=== PATIENT | female | born 2000 | race Caucasian/White ===

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

== ENCOUNTER 2021-09-09 20:49 | Emergency (ER) | payer OTHER ==
--- OUTSIDE RECORDS SUMMARY | 2021-09-09 20:53 | XMS REPORT | Continuity of Care Document ---
:2000 Author Organization [facility] t Address [address] [place] [address] [address]. [address] [place] [address] Care Team Providers Name Role Phone Jesus Peralta DO Attending Clinician Lab, Fam Pob I Attending Clinician Unavailable Daily HOUSEKEEPING ATTENDANT Attending Clinician NARA Attending Clinician Unavailable Alex RODRIGUEZ Attending Clinician Unavailable Douglas HOUSEKEEPING ATTENDANT Attending Clinician Doctor Unassigned, Name Attending Clinician Unavailable Nara REYNOSO Attending Clinician Saloni Bernard MD Attending Clinician SALONI BERNARD Attending Clinician Unavailable Filemon Shea MD Attending Clinician 2, Lab Attending Clinician Unavailable SOLA Attending Clinician Unavailable SOLA Attending Clinician Unavailable Ultrasound Attending Clinician Unavailable Sola MCCLOUD Attending Clinician Payers Payer Name Policy Type Policy Number Effective Date Expiration Date Gage MORALES [id number] 2018 00:00:00 [place] [facility] [id number] 2018 HEALTH 00:00:00 Problems Condition Condition Condition Status Onset Resolution Last Treating Co mments Source Name Details Category Date Date Treatment Clinician Date Pre-eclamp Pre-eclamp Disease Active 2018-07 U nivers irene, mild, irene, mild, 2-19 it y of delivered delivered 00:00: Tonie coates [address] [place] [address] Liveborn Liveborn Disease Active 2018-07 Unive rs , of , of 2-18 it y of burr burr 00:00: Tonie coates , , 00 Me dical born in born in [facility] by vaginal by vaginal delivery delivery Encounter Encounter Disease Active 2018-07 Uni vers for for 2-17 ity of elective elective 00:00: [place] induction induction 00 [facility] labor of labor Branch High-risk High-risk Disease Active 2018-07 Uni vers 2-09 ity of in third in third 00:00: [place] trimester trimester 00 [facility] 39 weeks 39 weeks Disease Active 2018-07 Unive rs gestation gestation 2-09 ity of of of 00:00: [place] 00 [facility] Depression Depression Disease Active 2018-07 U nivers , , 2- ity of unspecifie unspecifie 00:00: Te richies d d 00 Medical depression depression Br anch type type Generalize Generalize Disease Active 2018-07 U nivers d anxiety d anxiety 2- ity of disorder disorder 00:00: [address] Branch Obesity Obesity Disease Active Univers (BMI (BMI 9-18 ity of 30-39.9) 30-39.9) 00:00: [address] Branch No known No known Disease Unive rs active active ity of problems problems [facility] Allergies, Adverse Reactions, Alerts Allergy Allergy Status Severity Reaction(s) Onset Inactive Treating Comm ents Source Name Type Date Date Clinician NO KNOWN Drug Active Univers ALLERGIE Class ity of S [facility] Social History Social Habit Start Date Stop Date Quantity Comments Source ASSERTION 2018-10-09 University of 00:00:00 [facility] Exposure to Yes University of SARS-CoV-2 [place] [facility] (event) Branch History SDFL University o f Alcohol Std [place] [facility] Drinks Branch History [facility] University o f Alcohol Binge [place] [facility] Tobacco use and 2019-07-24 2019-07-24 Never used Universit y of exposure 00:00:00 00:00:00 [facility] Alcohol intake 2019-07-24 2019-07-24 Lifetime University of 00:00:00 00:00:00 non-drinker [facility] (finding) Branch History SDOH 2019-01-02 2019-01-02 1 University o f Alcohol Frequency 00:00:00 00:00:00 [facility] edical [place] Sex Assigned At [birth year] Universit y of 00:00:00 00:00:00 [facility] Smoking Status Start Date Stop Date Source Never smoker University [facility] Medications Ordered Filled Start Stop Current Ordering Indication Dosage Frequency Signature Comments Components Source Medication Medication Date Date Medication? Clinician (SIG) Name Name norethindro 2020-0 Yes [id number] 1{tbl} Take 1 Univers ne 0.35 mg 1-15 tablet by ity of tablet 00:00: mouth [place] 00 daily. Medical Branch norethindro 2020-0 Yes [id number] 1{tbl} Take 1 Univers ne 0.35 mg 1-15 tablet by ity of tablet 00:00: mouth [place] 00 daily. Medical Branch norethindro 2020-0 Yes [id number] 1{tbl} Take 1 Univers ne 0.35 mg 1-15 tablet by ity of tablet 00:00: mouth [place] 00 daily. Medical Branch norethindro 2020-0 Yes [id number] 1{tbl} Take 1 Univers ne 0.35 mg 1-15 tablet by ity of tablet 00:00: mouth [place] 00 daily. [facility] Branch norethindro 2019-0 Yes [id number] 1{tbl} Take 1 Univers ne 0.35 mg 1-15 tablet by ity of tablet 00:00: mouth [place] 00 daily. Medical Branch norethindro 2020-0 Yes [id number] 1{tbl} Take 1 Univers ne 0.35 mg 1-15 tablet by ity of tablet 00:00: mouth [place] 00 daily. Medical Branch norethindro 2020-0 Yes [id number] 1{tbl} Take 1 Univers ne 0.35 mg 1-15 tablet by ity of tablet 00:00: mouth [place] 00 daily. [facility] Branch norethindro 2019-0 Yes [id number] 1{tbl} Take 1 Univers ne 0.35 mg 1-15 tablet by ity of tablet 00:00: mouth [place] 00 daily. Medical Branch norethindro 2020-0 Yes [id number] 1{tbl} Take 1 Univers ne 0.35 mg 1-15 tablet by ity of tablet 00:00: mouth [place] 00 daily. Medical Branch norethindro 2020-0 Yes [id number] 1{tbl} Take 1 Univers ne 0.35 mg 1-15 tablet by ity of tablet 00:00: mouth [place] 00 daily. [facility] Branch norethindro 2020-0 Yes [id number] 1{tbl} Take 1 Univers ne 0.35 mg 1-15 tablet by ity of tablet 00:00: mouth [place] 00 daily. Medical Branch ibuprofen 2019- Yes [id number] 600mg Take 1 U nivers 600 mg 2-19 tablet by ity of tablet 00:00: mouth [place] 00 every 6 Medical (six) Branch hours as needed (Pain). Take with food or milk. 2018-07 Yes [id number] 1{tbl} Take 1 U nivers vitamin 2-19 tablet by ity of w/FA tablet 00:00: mouth [place] 00 daily. Medical Branch docusate 2018-07 Yes [id number] 240mg Take 1 Un chetna calcium 240 2-19 capsule by it y of mg capsule 00:00: mouth [place] 00 daily as Medical needed for Branch Constipati on. ferrous 2018-07 Yes [id number] 325mg Take 1 Uni vers sulfate 325 2-19 tablet by ity of mg (65 mg 00:00: mouth 2 [place] iron) 00 (two) Medical tablet times Branch daily. ibuprofen 2018-07 Yes [id number] 600mg Take 1 U nivers 600 mg 2-19 tablet by ity of tablet 00:00: mouth [place] 00 every 6 Medical (six) Branch hours as needed (Pain). Take with food or milk. 2018-07 Yes [id number] 1{tbl} Take 1 U nivers vitamin 2-19 tablet by ity of w/FA tablet 00:00: mouth [place] 00 daily. Medical Branch docusate 2018-07 Yes [id number] 240mg Take 1 Un chetna calcium 240 2-19 capsule by it y of mg capsule 00:00: mouth once [place] 00 daily as Medical needed for Branch Constipati on. ferrous 2018-07 Yes [id number] 325mg Take 1 Uni vers sulfate 325 2-19 tablet by ity of mg (65 mg 00:00: mouth 2 [place] iron) 00 (two) Medical tablet times Branch daily. ibuprofen 2018-07 Yes [id number] 600mg Take 1 U nivers 600 mg 2-19 tablet by ity of tablet 00:00: mouth [place] 00 every 6 Medical (six) Branch hours as needed (Pain). Take with food or milk. 2018-07 Yes [id number] 1{tbl} Take 1 U nivers vitamin 2-19 tablet by ity of w/FA tablet 00:00: mouth [place] 00 daily. Medical Branch docusate 2018-07 Yes [id number] 240mg Take 1 Un chetna calcium 240 2-19 capsule by it y of mg capsule 00:00: mouth once [place] 00 daily as Medical needed for Branch Constipati on. ferrous 2018-07 Yes [id number] 325mg Take 1 Uni vers sulfate 325 2-19 tablet by ity of mg (65 mg 00:00: mouth 2 [place] iron) 00 (two) Medical tablet times Branch daily. ibuprofen 2018-07 Yes [id number] 600mg Take 1 U nivers 600 mg 2-19 tablet by ity of tablet 00:00: mouth [place] 00 every 6 Medical (six) Branch hours as needed (Pain). Take with food or milk. 2018-07 Yes [id number] 1{tbl} Take 1 U nivers vitamin 2-19 tablet by ity of w/FA tablet 00:00: mouth [place] 00 daily. Medical Branch docusate 2018-07 Yes [id number] 240mg Take 1 Un chetna calcium 240 2-19 capsule by it y of mg capsule 00:00: mouth once [place] 00 daily as Medical needed for Branch Constipati on. ferrous 2018-07 Yes [id number] 325mg Take 1 Uni vers sulfate 325 2-19 tablet by ity of mg (65 mg 00:00: mouth 2 [place] iron) 00 (two) Medical tablet times Branch daily. ibuprofen 2018-07 Yes [id number] 600mg Take 1 U nivers 600 mg 2-19 tablet by ity of tablet 00:00: mouth [place] 00 every 6 Medical (six) Branch hours as needed (Pain). Take with food or milk. 2018-07 Yes [id number] 1{tbl} Take 1 U nivers vitamin 2-19 tablet by ity of w/FA tablet 00:00: mouth [place] 00 daily. Medical Branch docusate 2018-07 Yes [id number] 240mg Take 1 Un chetna calcium 240 2-19 capsule by it y of mg capsule 00:00: mouth once [place] 00 daily as Medical needed for Branch Constipati on. ferrous 2018-07 Yes [id number] 325mg Take 1 Uni vers sulfate 325 2-19 tablet by ity of mg (65 mg 00:00: mouth 2 [place] iron) 00 (two) Medical tablet times Branch daily. ibuprofen 2018-07 Yes [id number] 600mg Take 1 U nivers 600 mg 2-19 tablet by ity of tablet 00:00: mouth [place] 00 every 6 Medical (six) Branch hours as needed (Pain). Take with food or milk. 2018-07 Yes [id number] 1{tbl} Take 1 U nivers vitamin 2-19 tablet by ity of w/FA tablet 00:00: mouth [place] 00 daily. Medical Branch docusate 2018-07 Yes [id number] 240mg Take 1 Un chetna calcium 240 2-19 capsule by it y of mg capsule 00:00: mouth once [place] 00 daily as Medical needed for Branch Constipati on. ferrous 2018-07 Yes [id number] 325mg Take 1 Uni vers sulfate 325 2-19 tablet by ity of mg (65 mg 00:00: mouth 2 [place] iron) 00 (two) Medical tablet times Branch daily. ibuprofen 2018-07 Yes [id number] 600mg Take 1 U nivers 600 mg 2-19 tablet by ity of tablet 00:00: mouth [place] 00 every 6 Medical (six) Branch hours as needed (Pain). Take with food or milk. 2018-07 Yes [id number] 1{tbl} Take 1 U nivers vitamin 2-19 tablet by ity of w/FA tablet 00:00: mouth [place] 00 [facility]. [facility] Yes [id number] 240mg Take 1 Un chetna calcium 240 2-19 capsule by it y of mg capsule 00:00: mouth once [place] 00 daily as Medical needed for Branch Constipati on. ferrous 2018-07 Yes [id number] 325mg Take 1 Uni vers sulfate 325 2-19 tablet by ity of mg (65 mg 00:00: mouth 2 [place] iron) 00 (two) Medical tablet times Branch daily. ibuprofen 2018-07 Yes [id number] 600mg Take 1 U nivers 600 mg 2-19 tablet by ity of tablet 00:00: mouth [place] 00 every 6 Medical (six) Branch hours as needed (Pain). Take with food or milk. 2018-07 Yes [id number] 1{tbl} Take 1 U nivers vitamin 2-19 tablet by ity of w/FA tablet 00:00: mouth [place] 00 daily. [facility] Yes [id number] 240mg Take 1 Un chetna calcium 240 2-19 capsule by it y of mg capsule 00:00: mouth once [place] 00 daily as Medical needed for Branch Constipati on. ferrous 2018-07 Yes [id number] 325mg Take 1 Uni vers sulfate 325 2-19 tablet by ity of mg (65 mg 00:00: mouth 2 [place] iron) 00 (two) Medical tablet times Branch daily. ibuprofen 2018-07 Yes [id number] 600mg Take 1 U nivers 600 mg 2-19 tablet by ity of tablet 00:00: mouth [place] 00 every 6 Medical (six) Branch hours as needed (Pain). Take with food or milk. 2018-07 Yes [id number] 1{tbl} Take 1 U nivers vitamin 2-19 tablet by ity of w/FA tablet 00:00: mouth [place] 00 daily. Medical Branch docusate 2018-07 Yes [id number] 240mg Take 1 Un chetna calcium 240 2-19 capsule by it y of mg capsule 00:00: mouth once [place] 00 daily as Medical needed for Branch Constipati on. ferrous 2018-07 Yes [id number] 325mg Take 1 Uni vers sulfate 325 2-19 tablet by ity of mg (65 mg 00:00: mouth 2 [place] iron) 00 (two) Medical tablet times Branch daily. ibuprofen 2018-07 Yes [id number] 600mg Take 1 U nivers 600 mg 2-19 tablet by ity of tablet 00:00: mouth [place] 00 every 6 Medical (six) Branch hours as needed (Pain). Take with food or milk. 2018-07 Yes [id number] 1{tbl} Take 1 U nivers vitamin 2-19 tablet by ity of w/FA tablet 00:00: mouth [place] 00 daily. Medical Branch docusate 2018-07 Yes [id number] 240mg Take 1 Un chetna calcium 240 2-19 capsule by it y of mg capsule 00:00: mouth once [place] 00 daily as Medical needed for Branch Constipati on. ferrous 2018-07 Yes [id number] 325mg Take 1 Uni vers sulfate 325 2-19 tablet by ity of mg (65 mg 00:00: mouth 2 [place] iron) 00 (two) Medical tablet times Branch daily. ibuprofen 2018-07 Yes [id number] 600mg Take 1 U nivers 600 mg 2-19 tablet by ity of tablet 00:00: mouth [place] 00 every 6 Medical (six) Branch hours as needed (Pain). Take with food or milk. 2018-07 Yes [id number] 1{tbl} Take 1 U nivers vitamin 2-19 tablet by ity of w/FA tablet 00:00: mouth [place] 00 daily. Medical Branch docusate 2018-07 Yes [id number] 240mg Take 1 Un chetna calcium 240 2-19 capsule by it y of mg capsule 00:00: mouth once [place] 00 daily as Medical needed for Branch Constipati on. ferrous 2018-07 Yes [id number] 325mg Take 1 Uni vers sulfate 325 2-19 tablet by ity of mg (65 mg 00:00: mouth 2 [place] iron) 00 (two) Medical tablet times Branch daily. SERTraline 2018-07 Yes [id number] 50mg Take 1 U nivers (ZOLOFT) 50 0-17 tablet by ity of mg tablet 00:00: mouth [place] 00 daily. Medical Branch SERTraline 2018-07 Yes [id number] 50mg Take 1 U nivers (ZOLOFT) 50 0-17 tablet by ity of mg tablet 00:00: mouth [place] 00 daily. Medical Branch SERTraline 2018-07 Yes [id number] 50mg Take 1 U nivers (ZOLOFT) 50 0-17 tablet by ity of mg tablet 00:00: mouth [place] 00 daily. Medical Branch SERTraline 2018-07 Yes [id number] 50mg Take 1 U nivers (ZOLOFT) 50 0-17 tablet by ity of mg tablet 00:00: mouth [place] 00 daily. Medical Branch SERTraline 2018-07 Yes [id number] 50mg Take 1 U nivers (ZOLOFT) 50 0-17 tablet by ity of mg tablet 00:00: mouth [place] 00 daily. Medical Branch SERTraline 2018-07 Yes [id number] 50mg Take 1 U nivers (ZOLOFT) 50 0-17 tablet by ity of mg tablet 00:00: mouth [place] 00 daily. Medical Branch SERTraline 2018-07 Yes [id number] 50mg Take 1 U nivers (ZOLOFT) 50 0-17 tablet by ity of mg tablet 00:00: mouth [place] 00 daily. Medical Branch SERTraline 2018-07 Yes [id number] 50mg Take 1 U nivers (ZOLOFT) 50 0-17 tablet by ity of mg tablet 00:00: mouth [place] 00 daily. Medical Branch SERTraline 2018-07 Yes [id number] 50mg Take 1 U nivers (ZOLOFT) 50 0-17 tablet by ity of mg tablet 00:00: mouth [place] 00 daily. Medical Branch SERTraline 2018-07 Yes [id number] 50mg Take 1 U nivers (ZOLOFT) 50 0-17 tablet by ity of mg tablet 00:00: mouth [place] 00 daily. Medical Branch SERTraline 2019- Yes [id number] 50mg Take 1 U nivers (ZOLOFT) 50 0-17 tablet by ity of mg tablet 00:00: mouth [place] 00 daily. Medical Branch metroNIDAZO 2019-0 Yes [id number] 500mg Take 1 Univers LE 500 mg 9-19 tablet by ity o f tablet 00:00: mouth [place] 00 every 12 Medical (twelve) Branch hours. 2019-0 Yes Take by Unive rs vit 6-26 mouth. ity of calc,iron,f 14:45: [address] ( Branch VITAMIN ORAL) 2019-0 Yes Take by Unive rs vit 6-26 mouth. ity of calc,iron,f 14:45: [address] ([facility] Branch VITAMIN ORAL) 2019-0 Yes Take by Unive rs vit 6-26 mouth. ity of calc,iron,f 14:45: [address] ( Branch VITAMIN ORAL) 2019-0 Yes Take by Unive rs vit 6-26 mouth. ity of calc,iron,f 14:45: [address] ([facility] Branch VITAMIN ORAL) 2019-0 Yes Take by Unive rs vit 6-26 mouth. ity of calc,iron,f 14:45: [address] ( Branch VITAMIN ORAL) 2019-0 Yes Take by Unive rs vit 6-26 mouth. ity of calc,iron,f 14:45: [address] ( Branch VITAMIN ORAL) 2019-0 Yes Take by Unive rs vit 6-26 mouth. ity of calc,iron,f 14:45: [address] ( Branch VITAMIN ORAL) 2019-0 Yes Take by Unive rs vit 6-26 mouth. ity of calc,iron,f 14:45: [address] ( Branch VITAMIN ORAL) 2019-0 Yes Take by Unive rs vit 6-26 mouth. ity of calc,iron,f 14:45: [address] ([facility] Branch VITAMIN ORAL) 2019-0 Yes Take by Unive rs vit 6-26 mouth. ity of calc,iron,f 14:45: [place] olic 06 Medical ( Branch VITAMIN ORAL) Immunizations Ordered Filled Immunization Date Status Comments [facility] e Immunization Name Name TDAP (ADACEL) 2019-04-25 Completed University of VACCINE 00:00:00 [facility] Influenza Virus 2019-04-25 Completed Universit y of Vaccine Quad .5 mL 00:00:[address] [facility] IM 6+ MO Branch TDAP (ADACEL) 2019-04-25 Completed University of VACCINE 00:00:00 [facility] Influenza Virus 2019-04-25 Completed Universit y of Vaccine Quad .5 mL 00:00:[address] [facility] IM 6+ MO Branch TDAP (ADACEL) 2019-04-25 Completed University of VACCINE 00:00:00 [facility] Influenza Virus 2019-04-25 Completed Universit y of Vaccine Quad .5 mL 00:00:[address] [facility] IM 6+ MO Branch TDAP (ADACEL) 2019-04-25 Completed University of VACCINE 00:00:00 [facility] Influenza Virus 2019-04-25 Completed Universit y of Vaccine Quad .5 mL 00:00:[address] [facility] IM 6+ MO Branch TDAP (ADACEL) 2019-04-25 Completed University of VACCINE 00:00:00 [facility] Influenza Virus 2019-04-25 Completed Universit y of Vaccine Quad .5 mL 00:00:[address] [facility] IM 6+ MO Branch TDAP (ADACEL) 2019-04-25 Completed University of VACCINE 00:00:00 [facility] Influenza Virus 2019-04-25 Completed Universit y of Vaccine Quad .5 mL 00:00:[address] [facility] IM 6+ MO Branch TDAP (ADACEL) 2019-04-25 Completed University of VACCINE 00:00:00 [facility] Influenza Virus 2019-04-25 Completed Universit y of Vaccine Quad .5 mL 00:00:[address] [facility] IM 6+ MO Branch TDAP (ADACEL) 2019-04-25 Completed University of VACCINE 00:00:00 [facility] Influenza Virus 2019-04-25 Completed Universit y of Vaccine Quad .5 mL 00:00:00 [place] [facility] IM 6+ MO Branch TDAP (ADACEL) 2019-04-25 Completed University of VACCINE 00:00:00 [facility] Influenza Virus 2019-04-25 Completed Universit y of Vaccine Quad .5 mL 00:00:[address] [facility] IM 6+ MO Branch TDAP (ADACEL) 2019-04-25 Completed University of VACCINE 00:00:00 [facility] Influenza Virus 2019-04-25 Completed Universit y of Vaccine Quad .5 mL 00:00:[address] [facility] IM 6+ MO Branch TDAP (ADACEL) 2019-04-25 Completed University of VACCINE 00:00:00 [facility] Influenza Virus 2019-04-25 Completed Universit y of Vaccine Quad .5 mL 00:00:[address] [facility] IM 6+ MO Branch Vital Signs Vital Name Observation Time Observation Value Comments Source Systolic blood 2019-07-24 17:10:00 126 mm[Hg] Univer sity of pressure [place] [facility] Diastolic blood 2019-07-24 17:10:00 79 mm[Hg] Unive rsity of pressure [facility] Branch Heart rate 2019-07-24 17:10:00 64 /min Universi ty of [place] [facility] [place] Body temperature 2019-07-24 17:10:00 36.61 Anisha Univ ersity of [place] [facility] Respiratory rate 2019-07-24 17:10:00 18 /min Univ ersity of [place] [facility] Body height 2019-07-24 17:10:00 172.7 cm Universi ty of [place] [facility] Body weight 2019-07-24 17:10:00 90.719 kg Universi ty of [place] [facility] BMI 2019-07-24 17:10:00 30.41 kg/m2 Universi ty of [place] [facility] Systolic blood 2019-03-27 15:06:00 114 mm[Hg] Univer sity of pressure [place] [facility] Diastolic blood 2019-03-27 15:06:00 77 mm[Hg] Unive rsity of pressure [place] [facility] Heart rate 2019-03-27 15:06:00 78 /min Universi ty of [place] [facility] Body temperature 2019-03-27 15:06:00 36.67 Anisha Univ ersity of [place] [facility] Respiratory rate 2019-03-27 15:06:00 20 /min Univ ersity of [place] [facility] Body height 2019-03-27 15:06:00 170.2 cm Universi ty of [place] [facility] Body weight 2019-03-27 15:06:00 94.348 kg Universi ty of [place] [facility] BMI 2019-03-27 15:06:00 32.58 kg/m2 Universi ty of [place] [facility] Systolic blood 2019-02-27 14:04:00 118 mm[Hg] Univer sity of pressure [facility] Diastolic blood 2019-02-27 14:04:00 78 mm[Hg] Unive rsity of pressure [facility] Heart rate 2019-02-27 14:04:00 67 /min [facility] Body temperature 2019-02-27 14:04:00 36.5 Anisha [facility] 2019-02-27 14:04:00 18 /min [facility] Body height 2019-02-27 14:04:00 170.2 cm [facility] Body weight 2019-02-27 14:04:00 89.812 kg [facility] BMI 2019-02-27 14:04:00 31.01 kg/m2 [facility] Procedures Procedure Date / Time Performing Clinician Source Performed CONSENT FOR ORAL 2019-07-24 06:01:00 Doctor Alvarado, [facility] CONTRACEPTIVES [place] [facility] POCT TEST 2019-07-24 00:00:00 Justyna Haley [facility] POCT URINALYSIS W/O 2019-02-27 00:00:00 Justyna Haley [facility] SPECIFIC GRAVITY [facility] EXTERNAL PROVIDER RECORDS 2019-02-01 05:01:00 Doctor Alvarado, [facility] [place] [facility] Encounters Start End Encounter Admission Attending Care Care Encounter Source Date/Time Date/Time Type Type Clinicians Facility Department ID 2020-09-29 2020-09-29 Patient Fabian, [facility] [id number] Univers 00:00:00 00:00:00 Outreach [place] PRIMARY [id number] i ty of [facility] [id number] [place] [id number] De dical [address] Branch 2020-02-04 2020-02-04 Laboratory Lab, Adc Fam Pob [place] 1.2. [id number] Univers 08:57:30 09:17:30 Only Daily Annita [employer] [id number] ity of [place] [id number] [place] as Milena [phone] De dical [facility] [address] Branch [address] 2020-02-04 2020-02-04 Outpatient R [facility] [id number] Univers 09:00:00 09:00:00 [id number] ity of [facility] 2020-02-04 2020-02-04 Outpatient R [facility] [id number] Univers 09:00:00 09:00:00 ity of [facility] 2020-01-22 2020-01-22 [facility] [id number] Univers 13:30:00 13:30:00 JUSTYNA ity [facility] 2020-01-22 2020-01-22 Telephone MASON Johnson [id number] Univers 00:00:00 00:00:00 Matthew HARIS [id number] it y of [facility] [id number] Liborio as [phone] [address] 2020-01-20 2020-01-20 Laboratory Lab, Adc Fam Pob I [facility] 1.2. [id number] Univers 09:58:50 10:18:50 Only [place], [facility] [id number] ity of [place] [id number] Liborio as Professio [id number] De dical [address] Office [address] 2020-01-20 2020-01-20 Outpatient R [facility] [id number] Univers 09:40:00 09:40:00 [id number] ity [facility] 2020-01-20 2020-01-20 Outpatient R [facility] [id number] Univers 09:40:00 09:40:00 ity [facility] 2019-10-15 2019-10-15 Patient Doctor MASON [id number] Univers 00:00:00 00:00:00 Secure Msg Unassigned, HARIS [id number] ity of [facility][1] [id number] [place] as [id number] [address] 2019-10-10 2019-10-10 [facility] [id number] Univers 10:30:00 10:30:00 JUSTYNA [id number] ity [facility] 2019-10-10 2019-10-10 [facility] [id number] Univers 10:30:00 10:30:00 JUSTYNA itadina [facility] 2019-09-30 2019-09-30 Telephone Nara [facility] [id number] Univers 00:00:00 00:00:00 Justyna Richardson [id number] i ty of [place] [id number] [place] Professio [phone] [address] 2019-08-02 2019-08-02 Telephone Madhavi Bernard [facility] [facility] [id number] Univers 00:00:00 00:00:00 Saloni Richardson [id number] [id number] [phone] [address] 2019-07-24 2019-07-24 Routine Nara [facility] [id number] Univers 10:48:57 12:23:03 Justyna Richardson [id number] ity [id number] [phone] [address] 2019-07-24 2019-07-24 Orders Doctor MASON [id number] Univers 00:00:00 00:00:00 Only Unassigned, HARIS [id number] ity of [place] [facility] [id number] [place] as [phone] [address] 2019-03-28 2019-03-28 Case Nara [facility] [id number] Univers 00:00:00 00:00:00 Management Justyna Richardson [id number] [id number] [phone] [address] 2019-03-27 2019-03-27 Outpatient R MADHAVI BERNARD [facility] [id number] Univers 09:45:00 10:30:06 ity of [facility] 2019-03-27 2019-03-27 Routine Madhavi Bernard [facility] [id number] Univers 09:42:25 10:30:06 Saloni Richardson [id number] it[id number] [phone] [facility] [address] [facility] 2019-02-27 2019-02-27 Outpatient R NARA [facility] [id number] Univers 09:00:00 09:17:15 JUSTYNA ity [facility] 2019-02-27 2019-02-27 [facility] [id number] Univers 08:57:20 09:17:15 Justyna Debra [id number] it[id number] [phone] [facility] [address] [facility] 2019-02-12 2019-02-12 [facility] ShabbirMILI 1.2.840.114 [id number] [facility] 15:41:53 23:59:00 Encounter Adelia Cunningham [id number] ity of [facility] [id number] [place] [phone] [address] 2019-02-07 2019-02-12 Transistor Tester 2, Adc Lab [facility] [id number] Univers 10:40:29 13:24:31 Visit Madhavi Bernard Debra [id number] it[place] of [id number] [phone] [facility] [address] [facility] 2019-02-12 2019-02-12 Case Madhavi Bernard [facility] [id number] Univers 00:00:00 00:00:00 Management Saloni Richardson [id number] it[id number] [phone] [facility] [address] [facility] 2019-02-07 2019-02-07 Outpatient P INOCENCIA SELBY [facility] [id number] Univers 09:00:00 10:23:36 [facility] 2019-02-07 2019-02-07 Transistor Tester Ultrasound, JoniMfshannan [facility] 1.2 .840.114 [id number] Univers 08:56:22 10:23:36 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 [id number] ity of [facility] [id number] [place] as MATERNAL [phone] Med ical & CHILD [address] [place] [address] 2019-02-01 2019-02-01 Orders Doctor MASON [id number] Univers 00:00:00 00:00:00 Only Unassigned, HARIS [id number] ity of [place] [facility] [id number] [place] [phone] [address] Results Test Description Test Time Test Comments Results Result Comments Source POCT TEST 2019-07-24 18:22:00 Test Item Value Reference Range Interpretation Comme nts POCT PREG (test code = 1605) Negative On board controls acceptable with C Line (test code = 3574) Yes POCT PREG LOT # (test code = 3575) [id number] POCT PREG TEST DATE (test code = 3576) [facility] [id number] 14:14:00 Test Item Value Reference Range Interpretation Comments POCT PH U (test code = 3254) N/A 5-8 POCT U LEUK EST (test code = N/A Negative - Negative 3263) POCT U NIT (test code = 3262) N/A Negative - Negative POCT U PROT (test code = 3259) Negative Negative - Negative POCT U GLU (test code = 3256) Negative Negative - Negative POCT U KETONE (test code = 3258) N/A Negative - Negative POCT U BLD (test code = 3257) N/A Negative - Negative [facility]
[2021-09-09 22:45] LABS: Absolute Lymphocytes (CBC) 1.5 K/uL (0.7-4.9); Hematocrit 40.8 % (36.0-45.0); Lymphocytes % 28.3 % (15.3-44.8); MPV 7.7 fL (7.6-11.3); RBC Red Blood Cell Count 4.34 M/uL (3.86-4.86)
[2021-09-09 23:04] LABS: ALT/SGPT 37 U/L (12-78); AST/SGOT 27 U/L (15-37); Albumin 3.3 g/dL (3.4-5.0); Alkaline Phosphatase 66 U/L (45-117); BUN Blood Urea Nitrogen 12 mg/dL (7-18); Bicarbonate 23 mmol/L (21-32); Bilirubin Total 0.3 mg/dL (0.2-1.0); Glucose Level 90 mg/dL (74-106); Lipase 90 U/L (73-393); Potassium 3.9 mmol/L (3.5-5.1); Protein, Total 7.3 g/dL (6.4-8.2); Sodium Level 140 mmol/L (136-145)
[2021-09-09 23:08] LABS: Bilirubin Direct < 0.1 mg/dL (0-0.2)
[2021-09-09] MEDS ORDERED: NA CHLORIDE 0.9% 1,000 ML ONE (23:12)
--- NOTE | 2021-09-09 23:33 | EDPHYS ---
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 22:20 The patient presents to the emergency department with diarrhea, that is continuous. cp Onset: The symptoms/episode began/occurred 2 day(s) ago. 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 Associated signs and symptoms: Pertinent negatives: abdominal pain, constipation, fever, GI bleeding. Severity of symptoms: in the emergency department the symptoms are unchanged despite home interventions. 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 - Social history:: Smoking status: Reported history of juuling and/or vaping. Patient uses alcohol, only on a social basis. Patient/guardian denies using street drugs. ROS: 22:25 Constitutional: Negative for fever, poor PO intake. cp 22:25 Eyes: Negative for injury, pain, redness, and discharge. cp 22:25 Cardiovascular: Negative for chest pain. 22:25 Respiratory: Negative for cough, shortness of breath, wheezing. 22:25 Abdomen/GI: Positive for diarrhea, Negative for abdominal pain, vomiting, constipation, anorexia, black/tarry stool, rectal bleeding. 22:25 Neuro: Negative for altered mental status, headache, syncope, weakness. 22:25 All other systems are negative. Exam: 22:30 Constitutional: The patient appears in no acute distress, alert, awake, comfortable, cp non-toxic, well developed, well nourished. 22:30 Head/Face: Normocephalic, atraumatic. cp 22:30 Eyes: Periorbital structures: appear normal, Conjunctiva: normal, no exudate, no injection, Sclera: no appreciated abnormality, Lids and lashes: appear normal, bilaterally. 22:30 ENT: External ear(s): are unremarkable, Nose: is normal, Mouth: Lips: moist, Oral mucosa: moist, Posterior pharynx: Airway: no evidence of obstruction, patent. 22:30 Chest/axilla: Inspection: normal. 22:30 Cardiovascular: Rate: normal, Rhythm: regular. 22:30 Respiratory: the patient does not display signs of respiratory distress, Respirations: normal, no use of accessory muscles, no retractions, labored breathing, is not present, Breath sounds: are clear throughout, no decreased breath sounds, no stridor, no wheezing. 22:30 Abdomen/GI: Inspection: abdomen appears normal, Bowel sounds: active, all quadrants, Palpation: abdomen is soft and non-tender, in all quadrants, rebound tenderness, is not appreciated, involuntary guarding, is not appreciated. 22:30 Back: pain, is absent, ROM is normal. 22:30 Neuro: Orientation: to person, place \T\ time. Mentation: is normal. Vital Signs: 20:59 BP 131 / 92; Pulse 86; Resp 18; Temp 97.4; Pulse Ox 100% on R/A; Weight 79.38 kg (R); lg3 Height 5 ft. 8 in. (172.72 cm) (R); Pain 0/10; 23:42 BP 129 / 87; Pulse 82; Resp 17; Pulse Ox 100% on R/A; sm5 20:59 Body Mass Index 26.61 (79.38 kg, 172.72 cm) lg3 MDM: 22:11 Patient medically screened. cp 23:30 Data reviewed: vital signs, nurses notes, lab test result(s), and as a result, I will cp discharge patient. 23:30 Counseling: I had a detailed discussion with the patient and/or guardian regarding: the cp historical points, exam findings, and any diagnostic results supporting the discharge/admit diagnosis, lab results, to return to the emergency department if symptoms worsen or persist or if there are any questions or concerns that arise at home. ED course: VSS. Patient appears non-toxic. Will discharge to home for continued monitoring. Recommend hydration, antidiarrheal meds. 09/09 22:11 Order name: Basic Metabolic Panel; Complete Time: 23:09 cp 09/09 23:26 Interpretation: Normal except: CL 111. cp 09/09 22:11 Order name: CBC with Diff; Complete Time: 23:07 cp 09/09 23:27 Interpretation: Normal except: MN% 14.1. cp 09/09 22:11 Order name: Hepatic Function; Complete Time: 23:09 cp 09/09 23:27 Interpretation: Normal except: ALB 3.3; GLOB 4.0; A/G 0.8. cp 09/09 22:11 Order name: Lipase; Complete Time: 23:09 cp 09/09 22:28 Order name: Occult Blood cp 09/09 22:28 Order name: Ova And Parasites cp 09/09 22:28 Order name: Rotavirus Antigen cp 09/09 22:28 Order name: Stool Culture cp 09/09 22:28 Order name: CDIFF cp 09/09 22:29 Order name: Occult Blood; Complete Time: 23:07 EDMS 09/09 22:29 Order name: Ova and Parasites EDMS 09/09 22:29 Order name: Rotavirus Antigen; Complete Time: 23:07 EDMS 09/09 23:07 Interpretation: Reviewed. cp 09/09 22:11 Order name: IV Saline Lock; Complete Time: 22:28 cp 09/09 22:11 Order name: Labs collected and sent; Complete Time: 23:04 cp 09/09 22:28 Order name: Urine Dipstick-Ancillary (obtain specimen) cp 09/09 22:28 Order name: Urine Test (obtain specimen) cp Administered Medications: 23:18 Drug: NS 0.9% 1000 ml Route: IV; Rate: 1 bolus; Site: right forearm; sm5 23:41 Drug: LoMOTIL (diphenoxylate-atropine) 2 tabs Route: PO; sm5 Disposition Summary: 09/09/21 23:32 Discharge Ordered Location: Home cp Problem: new cp Symptoms: have improved cp Condition: Stable cp Diagnosis - Diarrhea, unspecified cp Followup: cp - With: Private Physician - When: 2 - 3 days - Reason: Worsening of condition Discharge Instructions: - Discharge Summary Sheet cp - Food Choices to Help Relieve Diarrhea, Adult cp - Diarrhea, Adult cp - Rotavirus Infection, Adult cp Forms: - Medication Reconciliation Form cp - Thank You Letter cp - Antibiotic Education cp - Prescription Opioid Use cp Prescriptions: - Zofran 4 mg Oral Tablet - take 1 tablet by ORAL route every 12 hours As needed; 20 tablet; Refills: 0, cp Product Selection Permitted - Lomotil 2.5-0.025 mg Oral Tablet - take 2 tablets by ORAL route once daily As needed; 20 tablet; Refills: 0, cp Product Selection Permitted Signatures: Dispatcher [employer] EDMS Matthew Adkins PA PA cp Leida Betts, RN RN lg3 Lisa Null RN RN sm5
--- NOTE | 2021-09-09 23:33 | ER ---
Nurse's Notes [facility] Name: Antonia Alston Age: 20 yrs Sex: Female : 2000 Arrival Date: 09/09/2021 Time: 20:51 Bed 26 Private MD: Diagnosis: Diarrhea, unspecified Presentation: 09/09 20:59 Chief complaint: Patient states: watery stools (16-20) a day for the last 2 days. 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 Coronavirus screen: Client denies travel out of the [place] in the last 14 days. At this time, the client does not indicate any symptoms associated with coronavirus-19. Ebola Screen: No symptoms or risks identified at this time. Initial Sepsis Screen: Does the patient meet any 2 criteria? No. Patient's initial sepsis screen is negative. Does the patient have a suspected source of infection? No. Patient's initial sepsis screen is negative. Risk Assessment: Do you want to hurt yourself or someone else? Patient reports no desire to harm self or others. Onset of symptoms was September 06, 2021. 20:59 Method Of Arrival: Ambulatory lg3 20:59 Acuity: CRISTEL 3 lg3 Triage Assessment: 21:02 General: Appears in no apparent distress. comfortable, Behavior is calm, cooperative. lg3 Pain: Denies pain. EENT: No deficits noted. No signs and/or symptoms were reported regarding the EENT system. Neuro: No deficits noted. Level of Consciousness is awake, alert, obeys commands, Oriented to person, place, time, situation. Cardiovascular: No deficits noted. Denies chest pain, shortness of breath. Respiratory: No deficits noted. Airway is patent Trachea midline Respiratory effort is even, unlabored, Respiratory pattern is regular, symmetrical. GI: No deficits noted. Abdomen is round non-distended, Bowel sounds present X 4 quads. Reports diarrhea. : No deficits noted. No signs and/or symptoms were reported regarding the genitourinary system. Derm: No deficits noted. No signs and/or symptoms reported regarding the dermatologic system. Skin is intact, is healthy with good turgor, Skin is dry. Musculoskeletal: No deficits noted. No signs and/or symptoms reported regarding the musculoskeletal system. Circulation, motion, and sensation intact. Range of motion: intact in all extremities. 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 - Social history:: Smoking status: Reported history of juuling and/or vaping. Patient uses alcohol, only on a social basis. Patient/guardian denies using street drugs. Screenin:06 Abuse screen: Denies threats or abuse. Denies injuries from another. Nutritional lg3 screening: No deficits noted. Tuberculosis screening: No symptoms or risk factors identified. Fall Risk None identified. Assessment: 23:42 General: Appears in no apparent distress. Behavior is cooperative, appropriate for age. sm5 Neuro: No deficits noted. Level of Consciousness is awake, alert, obeys commands, Oriented to person, place, time, situation. GI: Reports diarrhea. Vital Signs: 20:59 BP 131 / 92; Pulse 86; Resp 18; Temp 97.4; Pulse Ox 100% on R/A; Weight 79.38 kg (R); lg3 Height 5 ft. 8 in. (172.72 cm) (R); Pain 0/10; 23:42 BP 129 / 87; Pulse 82; Resp 17; Pulse Ox 100% on R/A; sm5 20:59 Body Mass Index 26.61 (79.38 kg, 172.72 cm) lg3 ED Course: 20:51 Patient arrived in ED. [email or web address] 21:02 Triage completed. lg3 21:02 Arm band placed on right wrist. lg3 21:33 Lisa Null, JENNIFER is Primary Nurse. sm5 22:04 Matthew Adkins PA is PHCP. cp 22:04 Noel Esteban MD is Attending Physician. cp 22:29 Inserted saline lock: 20 gauge in right forearm, using aseptic technique. sm5 23:02 Ova and Parasites Sent. sm5 23:03 Occult Blood Sent. sm5 23:03 Ova And Parasites Sent. sm5 23:04 Rotavirus Antigen Sent. sm5 23:04 Stool Culture Sent. sm5 23:42 Patient has correct armband on for positive identification. Bed in low position. Call 5 light in reach. Side rails up X2. 23:42 No provider procedures requiring assistance completed. IV discontinued, intact, sm5 bleeding controlled, No redness/swelling at site. Pressure dressing applied. Administered Medications: 23:18 Drug: NS 0.9% 1000 ml Route: IV; Rate: 1 bolus; Site: right forearm; sm5 23:41 Drug: LoMOTIL (diphenoxylate-atropine) 2 tabs Route: PO; sm5 Outcome: 23:32 Discharge ordered by MD. cp 23:42 Discharged to home ambulatory, with family. sm5 23:42 Condition: good 23:42 Discharge instructions given to patient, family, Instructed on discharge instructions, follow up and referral plans. medication usage, Demonstrated understanding of instructions, follow-up care, medications, Prescriptions given X 2. 23:43 Patient left the ED. 5 Signatures: Matthew Adkins PA PA cp Gibson, Lacie, RN RN lg3 Gisela [id number] Lisa Null, RN RN sm5
[2021-09-09] MEDS ORDERED: DIPHENOX/ATROP SULF 1 TAB PO ONE (23:39)
[2021-09-10 01:53] VITALS: TEMP 97.4; O2SAT 100
[2021-09-10 01:54] VITALS: BP 129/87
[2021-09-12 14:07] LABS: C.diff Antigen/Toxin Ag neg : Tox neg (NEG : NEG)
== END 2021-09-09 23:43 | disposition home or self-care (01) ==
LOC: ER 20:49
DX: R19.7 Diarrhea, unspecified (principal)
CPT/HCPCS: 87045; 85025; 80048; 36415; 87177; 82274; 80076; 87046; 87209; 87324; 83690; 87449; 87425; 99284; J7030

== ENCOUNTER 2021-12-27 09:59 | Emergency (ER) | payer OTHER ==
--- OUTSIDE RECORDS SUMMARY | 2021-12-27 11:01 | XMS REPORT | Continuity of Care Document ---
:2000 Author Organization [facility] t Address [address] [place] [address] [address]. [address] [place] [address] Care Team Providers Name Role Phone Jesus Peralta DO Attending Clinician Lab, Fam Pob I Attending Clinician Unavailable Daily CLAIM MANAGER Attending Clinician NARA Attending Clinician Unavailable Alex RODRIGUEZ Attending Clinician Unavailable Douglas CLAIM MANAGER Attending Clinician Doctor Unassigned, Name Attending Clinician Unavailable Nara REYNOSO Attending Clinician Saloni Bernard MD Attending Clinician SALONI BERNARD Attending Clinician Unavailable Filemon Shea MD Attending Clinician 2, Lab Attending Clinician Unavailable SOLA Attending Clinician Unavailable SOLA Attending Clinician Unavailable Ultrasound Attending Clinician Unavailable Sola MCCLOUD Attending Clinician Payers Payer Name Policy Type Policy Number Effective Date Expiration Date Gage MORALES [id number] 2018 00:00:00 [place] [facility] [id number] 2018 HEALTH 00:00:00 Problems Condition Condition Condition Status Onset Resolution Last Treating Co mments Source Name Details Category Date Date Treatment Clinician Date Pre-eclamp Pre-eclamp Disease Active 2018-07 U nivers irene, mild, irene, mild, 2-19 it y of delivered delivered 00:00: Tonie coates [address] [place] [address] Liveborn Liveborn Disease Active 2018-07 Unive rs , of , of 2-18 it y of burr burr 00:00: Tonie coates , , 00 Me dical born in born in [facility] by vaginal by vaginal delivery delivery Encounter Encounter Disease Active 2018-07 Uni vers for for 2-17 ity of elective elective 00:00: [place] induction induction 00 [facility] labor of labor Branch High-risk High-risk Disease Active 2018-07 Uni vers 2-09 ity of in third in third 00:00: [place] trimester trimester 00 [facility] 39 weeks 39 weeks Disease Active 2018-07 Unive rs gestation gestation 2-09 ity of of of 00:00: [place] 00 [facility] Depression Depression Disease Active 2018-07 U nivers , , 2- ity of unspecifie unspecifie 00:00: [place] d d 00 Medical depression depression Br anch type type Generalize Generalize Disease Active 2018-07 U nivers d anxiety d anxiety 2- ity of disorder disorder 00:00: [address] Branch Obesity Obesity Disease Active Univers (BMI (BMI 9-18 ity of 30-39.9) 30-39.9) 00:00: [address] Branch No known No known Disease Unive rs active active ity of problems problems [facility] [place] [facility] Allergies, Adverse Reactions, Alerts Allergy Allergy Status Severity Reaction(s) Onset Inactive Treating Comm ents Source Name Type Date Date Clinician NO KNOWN Drug Active Univers ALLERGIE Class ity of S [facility] [place] [facility] Social History Social Habit Start Date Stop Date Quantity Comments Source ASSERTION 2018-10-09 University of 00:00:00 [facility] [place] [facility] Exposure to Yes University of SARS-CoV-2 [place] [facility] (event) Branch History SDMD University o f Alcohol Std [place] [facility] Drinks Branch History [facility] University o f Alcohol Binge [place] [facility] al Branch Tobacco use and 2019-07-24 2019-07-24 Never used Universit y of exposure 00:00:00 00:00:00 [facility] [place] [facility] Alcohol intake 2019-07-24 2019-07-24 Lifetime University of 00:00:00 00:00:00 non-drinker [facility] (finding) Branch History SDOH 2019-01-02 2019-01-02 1 University o f Alcohol Frequency 00:00:00 00:00:00 [facility] edical [place] Sex Assigned At [birth year] Universit y of 00:00:00 00:00:00 [facility] [place] [facility] Smoking Status Start Date Stop Date Source Never smoker [facility] Medications Ordered Filled Start Stop Current Ordering Indication Dosage Frequency Signature Comments Components Source Medication Medication Date Date Medication? Clinician (SIG) Name Name norethindro 2020-0 Yes [id number] 1{tbl} Take 1 Univers ne 0.35 mg 1-15 tablet by ity of tablet 00:00: mouth [place] 00 daily. Medical Branch norethindro 2020-0 Yes [id number] 1{tbl} Take 1 Univers ne 0.35 mg 1-15 tablet by ity of tablet 00:00: mouth [place] 00 daily. Medical Branch norethindro 2020-0 Yes [id number] 1{tbl} Take 1 Univers ne 0.35 mg 1-15 tablet by ity of tablet 00:00: mouth [place] 00 daily. Medical Branch norethindro 2020-0 Yes [id number] 1{tbl} Take 1 Univers ne 0.35 mg 1-15 tablet by ity of tablet 00:00: mouth [place] 00 daily. [facility] Branch norethindro 2019-0 Yes [id number] 1{tbl} Take 1 Univers ne 0.35 mg 1-15 tablet by ity of tablet 00:00: mouth [place] 00 daily. Medical Branch norethindro 2020-0 Yes [id number] 1{tbl} Take 1 Univers ne 0.35 mg 1-15 tablet by ity of tablet 00:00: mouth [place] 00 daily. Medical Branch norethindro 2020-0 Yes [id number] 1{tbl} Take 1 Univers ne 0.35 mg 1-15 tablet by ity of tablet 00:00: mouth [place] 00 daily. [facility] Branch norethindro 2019-0 Yes [id number] 1{tbl} Take 1 Univers ne 0.35 mg 1-15 tablet by ity of tablet 00:00: mouth [place] 00 daily. Medical Branch norethindro 2020-0 Yes [id number] 1{tbl} Take 1 Univers ne 0.35 mg 1-15 tablet by ity of tablet 00:00: mouth [place] 00 daily. Medical Branch norethindro 2020-0 Yes [id number] 1{tbl} Take 1 Univers ne 0.35 mg 1-15 tablet by ity of tablet 00:00: mouth [place] 00 daily. [facility] Branch norethindro 2020-0 Yes [id number] 1{tbl} Take 1 Univers ne 0.35 mg 1-15 tablet by ity of tablet 00:00: mouth [place] 00 daily. Medical Branch ibuprofen 2019- Yes [id number] 600mg Take 1 U nivers 600 mg 2-19 tablet by ity of tablet 00:00: mouth [place] 00 every 6 Medical (six) Branch hours as needed (Pain). Take with food or milk. 2018-07 Yes [id number] 1{tbl} Take 1 U nivers vitamin 2-19 tablet by ity of w/FA tablet 00:00: mouth [place] 00 daily. Medical Branch docusate 2018-07 Yes [id number] 240mg Take 1 Un chetna calcium 240 2-19 capsule by it y of mg capsule 00:00: mouth [place] 00 daily as Medical needed for Branch Constipati on. ferrous 2018-07 Yes [id number] 325mg Take 1 Uni vers sulfate 325 2-19 tablet by ity of mg (65 mg 00:00: mouth 2 [place] iron) 00 (two) Medical tablet times Branch daily. ibuprofen 2018-07 Yes [id number] 600mg Take 1 U nivers 600 mg 2-19 tablet by ity of tablet 00:00: mouth [place] 00 every 6 Medical (six) Branch hours as needed (Pain). Take with food or milk. 2018-07 Yes [id number] 1{tbl} Take 1 U nivers vitamin 2-19 tablet by ity of w/FA tablet 00:00: mouth [place] 00 daily. Medical Branch docusate 2018-07 Yes [id number] 240mg Take 1 Un chetna calcium 240 2-19 capsule by it y of mg capsule 00:00: mouth [place] 00 daily as Medical needed for Branch Constipati on. ferrous 2018-07 Yes [id number] 325mg Take 1 Uni vers sulfate 325 2-19 tablet by ity of mg (65 mg 00:00: mouth 2 [place] iron) 00 (two) Medical tablet times Branch daily. ibuprofen 2018-07 Yes [id number] 600mg Take 1 U nivers 600 mg 2-19 tablet by ity of tablet 00:00: mouth [place] 00 every 6 Medical (six) Branch hours as needed (Pain). Take with food or milk. 2018-07 Yes [id number] 1{tbl} Take 1 U nivers vitamin 2-19 tablet by ity of w/FA tablet 00:00: mouth [place] 00 daily. Medical Branch docusate 2018-07 Yes [id number] 240mg Take 1 Un chetna calcium 240 2-19 capsule by it y of mg capsule 00:00: mouth [place] 00 daily as Medical needed for Branch Constipati on. ferrous 2018-07 Yes [id number] 325mg Take 1 Uni vers sulfate 325 2-19 tablet by ity of mg (65 mg 00:00: mouth 2 [place] iron) 00 (two) Medical tablet times Branch daily. ibuprofen 2018-07 Yes [id number] 600mg Take 1 U nivers 600 mg 2-19 tablet by ity of tablet 00:00: mouth [place] 00 every 6 Medical (six) Branch hours as needed (Pain). Take with food or milk. 2018-07 Yes [id number] 1{tbl} Take 1 U nivers vitamin 2-19 tablet by ity of w/FA tablet 00:00: mouth [place] 00 daily. Medical Branch docusate 2018-07 Yes [id number] 240mg Take 1 Un chetna calcium 240 2-19 capsule by it y of mg capsule 00:00: mouth [place] 00 daily as Medical needed for Branch Constipati on. ferrous 2018-07 Yes [id number] 325mg Take 1 Uni vers sulfate 325 2-19 tablet by ity of mg (65 mg 00:00: mouth 2 [place] iron) 00 (two) Medical tablet times Branch daily. ibuprofen 2018-07 Yes [id number] 600mg Take 1 U nivers 600 mg 2-19 tablet by ity of tablet 00:00: mouth [place] 00 every 6 Medical (six) Branch hours as needed (Pain). Take with food or milk. 2018-07 Yes [id number] 1{tbl} Take 1 U nivers vitamin 2-19 tablet by ity of w/FA tablet 00:00: mouth [place] 00 daily. Medical Branch docusate 2018-07 Yes [id number] 240mg Take 1 Un chetna calcium 240 2-19 capsule by it y of mg capsule 00:00: mouth [place] 00 daily as Medical needed for Branch Constipati on. ferrous 2018-07 Yes [id number] 325mg Take 1 Uni vers sulfate 325 2-19 tablet by ity of mg (65 mg 00:00: mouth 2 [place] iron) 00 (two) Medical tablet times Branch daily. ibuprofen 2018-07 Yes [id number] 600mg Take 1 U nivers 600 mg 2-19 tablet by ity of tablet 00:00: mouth [place] 00 every 6 Medical (six) Branch hours as needed (Pain). Take with food or milk. 2018-07 Yes [id number] 1{tbl} Take 1 U nivers vitamin 2-19 tablet by ity of w/FA tablet 00:00: mouth [place] 00 daily. Medical Branch docusate 2018-07 Yes [id number] 240mg Take 1 Un chetna calcium 240 2-19 capsule by it y of mg capsule 00:00: mouth once [place] 00 daily as Medical needed for Branch Constipati on. ferrous 2018-07 Yes [id number] 325mg Take 1 Uni vers sulfate 325 2-19 tablet by ity of mg (65 mg 00:00: mouth 2 [place] iron) 00 (two) Medical tablet times Branch daily. ibuprofen 2018-07 Yes [id number] 600mg Take 1 U nivers 600 mg 2-19 tablet by ity of tablet 00:00: mouth [place] 00 every 6 Medical (six) Branch hours as needed (Pain). Take with food or milk. 2018-07 Yes [id number] 1{tbl} Take 1 U nivers vitamin 2-19 tablet by ity of w/FA tablet 00:00: mouth [place] 00 daily. [facility] Yes [id number] 240mg Take 1 Un chetna calcium 240 2-19 capsule by it y of mg capsule 00:00: mouth [place] 00 daily as Medical needed for Branch Constipati on. ferrous 2018-07 Yes [id number] 325mg Take 1 Uni vers sulfate 325 2-19 tablet by ity of mg (65 mg 00:00: mouth 2 [place] iron) 00 (two) Medical tablet times Branch daily. ibuprofen 2018-07 Yes [id number] 600mg Take 1 U nivers 600 mg 2-19 tablet by ity of tablet 00:00: mouth [place] 00 every 6 Medical (six) Branch hours as needed (Pain). Take with food or milk. 2018-07 Yes [id number] 1{tbl} Take 1 U nivers vitamin 2-19 tablet by ity of w/FA tablet 00:00: mouth [place] 00 daily. [facility] Yes [id number] 240mg Take 1 Un chetna calcium 240 2-19 capsule by it y of mg capsule 00:00: mouth once [place] 00 daily as Medical needed for Branch Constipati on. ferrous 2018-07 Yes [id number] 325mg Take 1 Uni vers sulfate 325 2-19 tablet by ity of mg (65 mg 00:00: mouth 2 [place] iron) 00 (two) Medical tablet times Branch daily. ibuprofen 2018-07 Yes [id number] 600mg Take 1 U nivers 600 mg 2-19 tablet by ity of tablet 00:00: mouth [place] 00 every 6 Medical (six) Branch hours as needed (Pain). Take with food or milk. 2018-07 Yes [id number] 1{tbl} Take 1 U nivers vitamin 2-19 tablet by ity of w/FA tablet 00:00: mouth [place] 00 daily. Medical Branch docusate 2018-07 Yes [id number] 240mg Take 1 Un chetna calcium 240 2-19 capsule by it y of mg capsule 00:00: mouth once [place] 00 daily as Medical needed for Branch Constipati on. ferrous 2018-07 Yes [id number] 325mg Take 1 Uni vers sulfate 325 2-19 tablet by ity of mg (65 mg 00:00: mouth 2 [place] iron) 00 (two) Medical tablet times Branch daily. ibuprofen 2018-07 Yes [id number] 600mg Take 1 U nivers 600 mg 2-19 tablet by ity of tablet 00:00: mouth [place] 00 every 6 Medical (six) Branch hours as needed (Pain). Take with food or milk. 2018-07 Yes [id number] 1{tbl} Take 1 U nivers vitamin 2-19 tablet by ity of w/FA tablet 00:00: mouth [place] 00 daily. Medical Branch docusate 2018-07 Yes [id number] 240mg Take 1 Un chetna calcium 240 2-19 capsule by it y of mg capsule 00:00: mouth once [place] 00 daily as Medical needed for Branch Constipati on. ferrous 2018-07 Yes [id number] 325mg Take 1 Uni vers sulfate 325 2-19 tablet by ity of mg (65 mg 00:00: mouth 2 [place] iron) 00 (two) Medical tablet times Branch daily. ibuprofen 2018-07 Yes [id number] 600mg Take 1 U nivers 600 mg 2-19 tablet by ity of tablet 00:00: mouth [place] 00 every 6 Medical (six) Branch hours as needed (Pain). Take with food or milk. 2018-07 Yes [id number] 1{tbl} Take 1 U nivers vitamin 2-19 tablet by ity of w/FA tablet 00:00: mouth [place] 00 daily. Medical Branch docusate 2018-07 Yes [id number] 240mg Take 1 Un chetna calcium 240 2-19 capsule by it y of mg capsule 00:00: mouth once [place] 00 daily as Medical needed for Branch Constipati on. ferrous 2018-07 Yes [id number] 325mg Take 1 Uni vers sulfate 325 2-19 tablet by ity of mg (65 mg 00:00: mouth 2 [place] iron) 00 (two) Medical tablet times Branch daily. SERTraline 2018-07 Yes [id number] 50mg Take 1 U nivers (ZOLOFT) 50 0-17 tablet by ity of mg tablet 00:00: mouth [place] 00 daily. Medical Branch SERTraline 2018-07 Yes [id number] 50mg Take 1 U nivers (ZOLOFT) 50 0-17 tablet by ity of mg tablet 00:00: mouth [place] 00 daily. Medical Branch SERTraline 2018-07 Yes [id number] 50mg Take 1 U nivers (ZOLOFT) 50 0-17 tablet by ity of mg tablet 00:00: mouth [place] 00 daily. Medical Branch SERTraline 2018-07 Yes [id number] 50mg Take 1 U nivers (ZOLOFT) 50 0-17 tablet by ity of mg tablet 00:00: mouth [place] 00 daily. Medical Branch SERTraline 2018-07 Yes [id number] 50mg Take 1 U nivers (ZOLOFT) 50 0-17 tablet by ity of mg tablet 00:00: mouth [place] 00 daily. Medical Branch SERTraline 2018-07 Yes [id number] 50mg Take 1 U nivers (ZOLOFT) 50 0-17 tablet by ity of mg tablet 00:00: mouth [place] 00 daily. Medical Branch SERTraline 2018-07 Yes [id number] 50mg Take 1 U nivers (ZOLOFT) 50 0-17 tablet by ity of mg tablet 00:00: mouth [place] 00 daily. Medical Branch SERTraline 2018-07 Yes [id number] 50mg Take 1 U nivers (ZOLOFT) 50 0-17 tablet by ity of mg tablet 00:00: mouth [place] 00 daily. Medical Branch SERTraline 2018-07 Yes [id number] 50mg Take 1 U nivers (ZOLOFT) 50 0-17 tablet by ity of mg tablet 00:00: mouth [place] 00 daily. Medical Branch SERTraline 2018-07 Yes [id number] 50mg Take 1 U nivers (ZOLOFT) 50 0-17 tablet by ity of mg tablet 00:00: mouth [place] 00 daily. Medical Branch SERTraline 2019- Yes [id number] 50mg Take 1 U nivers (ZOLOFT) 50 0-17 tablet by ity of mg tablet 00:00: mouth [place] 00 daily. Medical Branch metroNIDAZO 2019-0 Yes [id number] 500mg Take 1 Univers LE 500 mg 9-19 tablet by ity o f tablet 00:00: mouth [place] 00 every 12 Medical (twelve) Branch hours. 2019-0 Yes Take by Unive rs vit 6-26 mouth. ity of calc,iron,f 14:45: [address] ( Branch VITAMIN ORAL) 2019-0 Yes Take by Unive rs vit 6-26 mouth. ity of calc,iron,f 14:45: [address] ([facility] Branch VITAMIN ORAL) 2019-0 Yes Take by Unive rs vit 6-26 mouth. ity of calc,iron,f 14:45: [address] ( Branch VITAMIN ORAL) 2019-0 Yes Take by Unive rs vit 6-26 mouth. ity of calc,iron,f 14:45: [address] ([facility] Branch VITAMIN ORAL) 2019-0 Yes Take by Unive rs vit 6-26 mouth. ity of calc,iron,f 14:45: [address] ( Branch VITAMIN ORAL) 2019-0 Yes Take by Unive rs vit 6-26 mouth. ity of calc,iron,f 14:45: [address] ( Branch VITAMIN ORAL) 2019-0 Yes Take by Unive rs vit 6-26 mouth. ity of calc,iron,f 14:45: [address] ( Branch VITAMIN ORAL) 2019-0 Yes Take by Unive rs vit 6-26 mouth. ity of calc,iron,f 14:45: [address] ( Branch VITAMIN ORAL) 2019-0 Yes Take by Unive rs vit 6-26 mouth. ity of calc,iron,f 14:45: [address] ([facility] Branch VITAMIN ORAL) 2019-0 Yes Take by Unive rs vit 6-26 mouth. ity of calc,iron,f 14:45: [place] olic 06 Medical ( Branch VITAMIN ORAL) Immunizations Ordered Filled Immunization Date Status Comments [facility] e Immunization Name Name TDAP (ADACEL) 2019-04-25 Completed University of VACCINE 00:00:00 [facility] [place] [facility] Influenza Virus 2019-04-25 Completed Universit y of Vaccine Quad .5 mL 00:00:00 [facility] IM 6+ MO Branch TDAP (ADACEL) 2019-04-25 Completed University of VACCINE 00:00:00 [facility] [place] [facility] Influenza Virus 2019-04-25 Completed Universit y of Vaccine Quad .5 mL 00:00:00 [facility] IM 6+ MO Branch TDAP (ADACEL) 2019-04-25 Completed University of VACCINE 00:00:00 [facility] [place] [facility] Influenza Virus 2019-04-25 Completed Universit y of Vaccine [place] .5 mL 00:00:00 [facility] IM 6+ MO Branch TDAP (ADACEL) 2019-04-25 Completed University of VACCINE 00:00:00 [facility] [place] [facility] Influenza Virus 2019-04-25 Completed Universit y of Vaccine [place] .5 mL 00:00:00 [facility] IM 6+ MO Branch TDAP (ADACEL) 2019-04-25 Completed University of VACCINE 00:00:00 [facility] [place] [facility] Influenza Virus 2019-04-25 Completed Universit y of Vaccine Quad .5 mL 00:00:00 [facility] IM 6+ MO Branch TDAP (ADACEL) 2019-04-25 Completed University of VACCINE 00:00:00 [facility] [place] [facility] Influenza Virus 2019-04-25 Completed Universit y of Vaccine Quad .5 mL 00:00:00 [facility] IM 6+ MO Branch TDAP (ADACEL) 2019-04-25 Completed University of VACCINE 00:00:00 [facility] [place] [facility] Influenza Virus 2019-04-25 Completed Universit y of Vaccine Quad .5 mL 00:00:00 [facility] IM 6+ MO Branch TDAP (ADACEL) 2019-04-25 Completed University of VACCINE 00:00:00 [facility] [place] [facility] Influenza Virus 2019-04-25 Completed Universit y of Vaccine Quad .5 mL 00:00:00 [place] [facility] IM 6+ MO Branch TDAP (ADACEL) 2019-04-25 Completed University of VACCINE 00:00:00 [facility] [place] [facility] Influenza Virus 2019-04-25 Completed Universit y of Vaccine Quad .5 mL 00:00:00 [facility] IM 6+ MO Branch TDAP (ADACEL) 2019-04-25 Completed University of VACCINE 00:00:00 [facility] [place] [facility] Influenza Virus 2019-04-25 Completed Universit y of Vaccine Quad .5 mL 00:00:00 [facility] IM 6+ MO Branch TDAP (ADACEL) 2019-04-25 Completed University of VACCINE 00:00:00 [facility] [place] [facility] Influenza Virus 2019-04-25 Completed Universit y of Vaccine Quad .5 mL 00:00:00 [facility] IM 6+ MO Branch Vital Signs Vital Name Observation Time Observation Value Comments Source Systolic blood 2019-07-24 17:10:00 126 mm[Hg] Univer sity of pressure [place] [facility] Diastolic blood 2019-07-24 17:10:00 79 mm[Hg] Unive rsity of pressure [facility] Branch Heart rate 2019-07-24 17:10:00 64 /min Universi ty of [place] [facility] [place] Body temperature 2019-07-24 17:10:00 36.61 Anisha Univ ersity of [place] [facility] Branch Respiratory rate 2019-07-24 17:10:00 18 /min Univ ersity of [place] [facility] Body height 2019-07-24 17:10:00 172.7 cm Universi ty of [place] [facility] Body weight 2019-07-24 17:10:00 90.719 kg Universi ty of [place] [facility] BMI 2019-07-24 17:10:00 30.41 kg/m2 Universi ty of [place] [facility] Systolic blood 2019-03-27 15:06:00 114 mm[Hg] Univer sity of pressure [place] [facility] Diastolic blood 2019-03-27 15:06:00 77 mm[Hg] Unive rsity of pressure [place] [facility] Heart rate 2019-03-27 15:06:00 78 /min Universi ty of [place] [facility] Body temperature 2019-03-27 15:06:00 36.67 Anisha Univ ersity of [place] [facility] Respiratory rate 2019-03-27 15:06:00 20 /min Univ ersity of [place] [facility] Body height 2019-03-27 15:06:00 170.2 cm Universi ty of [place] [facility] Body weight 2019-03-27 15:06:00 94.348 kg Universi ty of [place] [facility] BMI 2019-03-27 15:06:00 32.58 kg/m2 Universi ty of [place] [facility] Systolic blood 2019-02-27 14:04:00 118 mm[Hg] Univer sity of pressure [facility] [place] [facility] Diastolic blood 2019-02-27 14:04:00 78 mm[Hg] Unive rsity of pressure [facility] [place] [facility] Heart rate 2019-02-27 14:04:00 67 /min [facility] Body temperature 2019-02-27 14:04:00 36.5 Anisha [facility] Respiratory rate 2019-02-27 14:04:00 18 /min [facility] Body height 2019-02-27 14:04:00 170.2 cm [facility] Body weight 2019-02-27 14:04:00 89.812 kg [facility] BMI 2019-02-27 14:04:00 31.01 kg/m2 [facility] Procedures Procedure Date / Time Performing Clinician Source Performed CONSENT FOR ORAL 2019-07-24 06:01:00 Doctor Alvarado, [facility] CONTRACEPTIVES [place] [facility] POCT TEST 2019-07-24 00:00:00 Justyna Haley [facility] POCT URINALYSIS W/O 2019-02-27 00:00:00 Justyna Haley [facility] SPECIFIC GRAVITY [facility] EXTERNAL PROVIDER RECORDS 2019-02-01 05:01:00 Doctor Alvarado, [facility] [place] [facility] Encounters Start End Encounter Admission Attending Care Care Encounter Source Date/Time Date/Time Type Type Clinicians Facility Department ID 2020-09-29 2020-09-29 Patient Fabian, [facility] [id number] Univers 00:00:00 00:00:00 Outreach [place] PRIMARY [id number] i ty of [facility] [id number] [place] [id number] Md dical 388 Branch 2020-02-04 2020-02-04 Laboratory Lab, Adc Fam Pob [place] 1.2. [id number] Univers 08:57:30 09:17:30 Only Daily Annita [employer] [id number] ity of [place] [id number] [place] as Milena [id number] Md dical [facility] [address] Branch [address] 2020-02-04 2020-02-04 Outpatient R [facility] [id number] Univers 09:00:00 09:00:00 [id number] ity of [facility] [place] [facility] 2020-02-04 2020-02-04 Outpatient R [facility] [id number] Univers 09:00:00 09:00:00 ity of [facility] [place] [facility] 2020-01-22 2020-01-22 [id number] Univers 13:30:00 13:30:00 JUSTYNA ity [facility] 2020-01-22 2020-01-22 Telephone MASON Johnson [id number] Univers 00:00:00 00:00:00 Matthew HARIS [id number] it y of [facility] [id number] [place] as [id number] [address] 2020-01-20 2020-01-20 Laboratory Lab, Adc Fam Pob I [facility] 1.2. [id number] Univers 09:58:50 10:18:50 Only [place], [facility] [id number] ity of [place] [id number] Liborio as Professio [id number] Md dical [address] Office [address] 2020-01-20 2020-01-20 Outpatient R [facility] [id number] Univers 09:40:00 09:40:00 [id number] ity [facility] 2020-01-20 2020-01-20 Outpatient R [facility] [id number] Univers 09:40:00 09:40:00 ity [facility] 2019-10-15 2019-10-15 Patient Doctor MASON [id number] Univers 00:00:00 00:00:00 Secure Msg Unassigned, HARIS [id number] ity of [facility] [id number] [place] as [id number] [address] 2019-10-10 2019-10-[address] [id number] 4N-[id number] Univers 10:30:00 10:30:00 JUSTYNA [id number] ity [facility] 2019-10-10 2019-10-10 [facility] [id number] Univers 10:30:00 10:30:00 JUSTYNA itadina [facility] 2019-09-30 2019-09-30 Telephone Nara [facility] [id number] Univers 00:00:00 00:00:00 Justyna Richardson [id number] i [id number] [phone] [address] 2019-08-02 2019-08-02 Telephone Madhavi Bernard [facility] [id number] Univers 00:00:00 00:00:00 Saloni Richardson [id number] i [id number] [phone] [address] 2019-07-24 2019-07-24 Routine Nara [facility] [id number] Univers 10:48:57 12:23:03 Justyna Richardson [id number] ity of [id number] [phone] [address] 2019-07-24 2019-07-24 Orders Doctor MASON [id number] Univers 00:00:00 00:00:00 Only Unassigned, HARIS [id number] ity of [place] [facility] [id number] [place] as [phone] [address] 2019-03-28 2019-03-28 Case Nara [facility] [id number] Univers 00:00:00 00:00:00 Management Justyna Richardson [id number] it[id number] [phone] [address] 2019-03-27 2019-03-27 Outpatient R MADHAVI BERNARD [facility] [id number] Univers 09:45:00 10:30:06 ity of [facility] 2019-03-27 2019-03-27 Routine Madhavi Bernard [facility] [id number] Univers 09:42:25 10:30:06 Saloni Richardson [id number] ity of [id number] [phone] [facility] [address] [facility] 2019-02-27 2019-02-27 Outpatient R NARA [facility] [id number] Univers 09:00:00 09:17:15 JUSTYNA ity [facility] 2019-02-27 2019-02-27 [facility] [id number] Univers 08:57:20 09:17:15 Justyna Debra [id number] ity of [id number] [phone] [facility] [address] [facility] 2019-02-12 2019-02-12 [facility] ShabbirMILI 1.2.840.114 [id number] [facility] 15:41:53 23:59:00 Encounter Adelia Cunningham [id number] ity of [facility] [id number] [place] [phone] [address] 2019-02-07 2019-02-12 Machine Package Sealer 2, Adc Lab [facility] 1.2.840.114 [id number] Univers 10:40:29 13:24:31 Visit Madhavi Bernard Debra [id number] ity of [id number] [phone] [facility] [address] [facility] 2019-02-12 2019-02-12 Case Madhavi Bernard [facility] [id number] Univers 00:00:00 00:00:00 Management Saloni Richardson [id number] ity of [id number] [phone] [facility] [address] [facility] 2019-02-07 2019-02-07 Outpatient P INOCENCIA SELBY [facility] [id number] Univers 09:00:00 10:23:36 [facility] 2019-02-07 2019-02-07 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, JoniMfshannan [facility] 1.2 .840.114 [id number] Univers 08:56:22 10:23:36 Visit Inocencia Selby [employer] PRESSURE [id number] ity of [facility] [id number] [place] as MATERNAL [phone] Med ical & CHILD [address] [place] [address] 2019-02-01 2019-02-01 Orders Doctor MASON 1.2.840.114 [id number] Univers 00:00:00 00:00:00 Only Unassigned, HARIS [id number] ity of [place] [facility] [id number] [place] [phone] [address] Results Test Description Test Time Test Comments Results Result Comments Source POCT TEST 2019-07-24 18:22:00 Test Item Value Reference Range Interpretation Comme nts POCT PREG (test code = 1605) Negative On board controls acceptable with C Line (test code = 3574) Yes POCT PREG LOT # (test code = 3575) [id number] POCT PREG TEST DATE (test code = 3576) [facility]CIFIC [id number] 14:14:00 Test Item Value Reference Range Interpretation [...] code = 3257) N/A Negative - Negative [facility]
[2021-12-27] MEDS ORDERED: ACETAMINOPHEN 325 MG TABLET ONE (12:21)
--- NOTE | 2021-12-27 13:01 | ER ---
Nurse's Notes [facility] Name: Antonia Alston Age: 21 yrs Sex: Female : 2000 Arrival Date: 12/27/2021 Time: 10:07 Bed 11 Private MD: Diagnosis: Streptococcal pharyngitis Presentation: 12/27 10:20 Chief complaint: Patient states: pain and swelling in throat and body aches since iw yesterday , COVID was neg yesterday. Coronavirus screen: Client presents with at least one sign or symptom that may indicate coronavirus-19. Ebola Screen: Patient negative for fever greater than or equal to 101.5 degrees Fahrenheit, and additional compatible Ebola Virus Disease symptoms Patient denies exposure to infectious person. Patient denies travel to an Ebola-affected area in the 21 days before illness onset. No symptoms or risks identified at this time. Initial Sepsis Screen: Does the patient meet any 2 criteria? No. Patient's initial sepsis screen is negative. Does the patient have a suspected source of infection? No. Patient's initial sepsis screen is negative. Risk Assessment: Do you want to hurt yourself or someone else? Patient reports no desire to harm self or others. Onset of symptoms was December 27, 2021. 10:20 Method Of Arrival: Ambulatory iw 10:20 Acuity: CRISTEL 4 iw Triage Assessment: 13:11 General: Appears in no apparent distress. comfortable, Behavior is calm, cooperative, ld1 appropriate for age. 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 - Social history:: Smoking status: . Screenin:46 Abuse screen: Denies threats or abuse. Denies injuries from another. Nutritional ld1 screening: No deficits noted. Tuberculosis screening: No symptoms or risk factors identified. Fall Risk None identified. Assessment: 12:46 Reassessment: See triage assessment. Pain: Denies pain. Neuro: Level of Consciousness ld1 is awake, alert, obeys commands, Oriented to person, place, time, situation. Cardiovascular: Capillary refill < 3 seconds Patient's skin is warm and dry. Respiratory: Airway is patent Respiratory effort is even, unlabored, Breath sounds are clear bilaterally. EENT: Throat is pink is reddened. Vital Signs: 10:20 Resp 16; Temp 97.8; Pulse Ox 98% on R/A; Weight 81.65 kg; Height 5 ft. 7 in. (170.18 iw cm); 12:46 BP 126 / 84; Pulse 86; Resp 18; Pulse Ox 99% on R/A; ld1 10:20 Body Mass Index 28.19 (81.65 kg, 170.18 cm) iw ED Course: 10:07 Patient arrived in ED. am2 10:13 Oleg Cabello PA is PHCP. cheryl 10:13 Matthew Raza MD is Attending Physician. cheryl 10:20 Yanni Solorzano, RN is Primary Nurse. iw 10:21 Triage completed. iw 10:22 Arm band placed on. iw 12:46 Patient has correct armband on for positive identification. Placed in gown. Bed in low ld1 position. Call light in reach. Side rails up X2. 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 Pulse ox on. NIBP on. Door closed. Noise minimized. Warm blanket given. 12:46 No provider procedures requiring assistance completed. ld1 13:11 Patient did not have IV access during this emergency room visit. ld1 Administered Medications: 12:16 Drug: Acetaminophen 650 mg Route: PO; ld1 12:40 Follow up: Response: No adverse reaction iw Medication: 12:46 VIS not applicable for this client. ld1 Outcome: 13:00 Discharge ordered by . william 13:11 Discharged to home ambulatory. ld1 13:11 Condition: stable 13:11 Discharge instructions given to patient, Instructed on discharge instructions, follow up and referral plans. medication usage, Demonstrated understanding of instructions, follow-up care, medications, Prescriptions given X 1. 13:11 Patient left the ED. ld1 Signatures: Oleg Cabello PA PA jmm Williams, Irene, RN RN Kassidy Garcia am2 Amy Canales RN RN ld1
--- NOTE | 2021-12-27 13:01 | EDPHYS ---
Physician Documentation [facility] Name: Antonia Alston Age: 21 yrs Sex: Female : 2000 Arrival Date: 12/27/2021 Time: 10:07 Bed 11 Private MD: ED Physician Matthew Raza HPI: 12/27 12:55 This 21 yrs old Female presents to ER via Ambulatory with complaints of Sore Throat, jmm Difficulty Swallowing, Headache, Weakness. 12:55 The patient presents with sore throat. Onset: The symptoms/episode began/occurred jmm gradually. Modifying factors: The symptoms are alleviated by nothing, the symptoms are aggravated by nothing. Associated signs and symptoms: Pertinent positives: fever. This is a 21 year old female with a history of anxiety, bipolar disorder, depression that presents to the ED with complaints of sore throat, headache. . 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 - Social history:: Smoking status: . ROS: 12:55 Constitutional: Positive for body aches, chills. jmm 12:55 ENT: Positive for sore throat. 12:55 All other systems are negative. Exam: 12:55 Constitutional: This is a well developed, well nourished patient who is awake, alert, jmm and in no acute distress. Head/Face: atraumatic. Eyes: EOMI, no conjunctival erythema appreciated 12:55 Neck: Trachea midline, Supple Chest/axilla: Normal chest wall appearance and motion. Cardiovascular: Regular rate and rhythm. No edema appreciated Respiratory: Normal respirations, no respiratory distress appreciated Abdomen/GI: Non distended, soft Back: Normal ROM Skin: General appearance color normal MS/ Extremity: Moves all extremities, no obvious deformities appreciated, no edema noted to the lower extremities Neuro: Awake and alert Psych: Behavior is normal, Mood is normal, Patient is cooperative and pleasant 12:55 ENT: Posterior pharynx: erythema, that is moderate. Vital Signs: 10:20 Resp 16; Temp 97.8; Pulse Ox 98% on R/A; Weight 81.65 kg; Height 5 ft. 7 in. (170.18 iw cm); 12:46 BP 126 / 84; Pulse 86; Resp 18; Pulse Ox 99% on R/A; ld1 10:20 Body Mass Index 28.19 (81.65 kg, 170.18 cm) iw MDM: 10:14 Patient medically screened. [facility] 12:55 Data reviewed: vital signs, nurses notes. Counseling: I had a detailed discussion with william the patient and/or guardian regarding: the historical points, exam findings, and any diagnostic results supporting the discharge/admit diagnosis, lab results, the need for outpatient follow up, to return to the emergency department if symptoms worsen or persist or if there are any questions or concerns that arise at home. ED course: Patient is alert and non toxic in appearance in the ED. No signs of resp distress. Patient advised to follow up with pcp and otherwise given strict return precautions. Patient understood and agrees with the plan of care. . 12/27 10:17 Order name: SARS-COV-2 RT PCR (Document "Date of Onset" if Symptomatic); Complete Time: [facility] 12:40 12/27 10:17 Order name: Strep; Complete Time: 11:59 [facility] 12/27 10:17 Order name: Influenza Screen (a \\T\\ B); Complete Time: 12:03 [facility] Administered Medications: 12:16 Drug: Acetaminophen 650 mg Route: PO; ld1 12:40 Follow up: Response: No adverse reaction iw Disposition Summary: 12/27/21 13:00 Discharge Ordered Location: Home [facility] Condition: Stable [facility] Diagnosis - Streptococcal pharyngitis [facility] Followup: [facility] - With: Private Physician - When: 2 - 3 days - Reason: Recheck today's complaints, Continuance of care, Re-evaluation by your physician Discharge Instructions: - Discharge Summary Sheet [facility] - Strep Throat, Adult [facility] Forms: - Medication Reconciliation Form [facility] - Thank You Letter [facility] - Antibiotic Education [facility] - Prescription Opioid Use [facility] - Work release form ld1 Prescriptions: - Amoxicillin 875 mg Oral Tablet - take 1 tablet by ORAL route every 12 hours for 10 days; 20 tablet; Refills: 0, [facility] Product Selection Permitted Signatures: Dispatcher [employer] EDMS Ry, MD MD andrae Castro Joel, PA PA jmm Williams, Irene, RN RN iw Amy Canales RN RN ld1
[2021-12-27 13:18] VITALS: TEMP 97.8
[2021-12-27 13:19] VITALS: BP 126/84; O2SAT 99
== END 2021-12-27 13:11 | disposition home or self-care (01) ==
LOC: ER 09:59
DX: J02.0 Streptococcal pharyngitis (principal); Z20.822 Contact with and (suspected) exposure to COVID-19
CPT/HCPCS: 87081; 87804 ×2; U0003; 99284

== ENCOUNTER 2022-04-05 20:45 | Emergency (ER) | payer OTHER ==
--- OUTSIDE RECORDS SUMMARY | 2022-04-05 20:49 | XMS REPORT | Continuity of Care Document ---
:2000 Author Organization [facility] t Address [address] [place] [address] [address] [place] [address] Care Team Providers Name Role Phone MelisaSue Attending Clinician Unavailable Quoc Peralta DO Attending Clinician Lab, Adc Fam Pob I Attending Clinician Unavailable Annita Mancilla Attending Clinician JUSTYNA BAINS Attending Clinician Unavailable Matthew Johnson RN Attending Clinician Unavailable Leida Mast Attending Clinician Doctor Unassigned, [place] Attending Clinician Unavailable Justyna Bains PA-C Attending Clinician Madhavi Bernard MD Attending Clinician MADHAVI BERNARD Attending Clinician Unavailable Adelia Shea MD Attending Clinician 2, Ad[facility] Lab Attending Clinician Unavailable INOCENCIA SELBY Attending Clinician Unavailable INOCENCIA SELBY Attending Clinician Unavailable Ultrasound, Ang-Mfm Attending Clinician Unavailable Inocencia Selby MD Attending Clinician Payers Payer Name Policy Type Policy Number Effective Date Expiration Date Aminata MORALES [id number] 2018 00:00:00 [place] [facility] [id number] 2018 HEALTH 00:00:00 Problems Condition Condition Condition Status Onset Resolution Last Treating Co mments Source Name Details Category Date Date Treatment Clinician Date Pre-eclamp Pre-eclamp Disease Active 2018-07 U nivers irene, mild, irene, mild, 2-19 [place] [facility] Liveborn Liveborn Disease Active 2018-07 Unive rs , of infant, of 2-18 it y of burr burr 00:00: s , , 00 Me dical born in born in [facility] hospital by vaginal by vaginal delivery delivery Encounter Encounter Disease Active 2018-07 Uni vers for for 2-17 ity of elective elective 00:00: [place] induction induction 00 [facility] of labor of labor [place] High-risk High-risk Disease Active 2018-07 Uni vers 2-09 ity of in third in third 00:00: [place] trimester trimester 00 [facility] 39 weeks 39 weeks Disease Active 2018-07 Unive rs gestation gestation 2-09 ity of of of 00:00: [place] 00 [facility] Depression Depression Disease Active 2018-07 U casandra , , 2-09 ity of unspecifie [place]ifie [place] Medical depression depression Br anch type type Generalize Generalize Disease Active 2018-07 U casandra d anxiety d anxiety 2-09 ity of disorder disorder 00:00: [address] Obesity Obesity Disease Active Univers (BMI (BMI 9-18 ity of 30-39.9) 30-39.9) 00:00: [address] No known No known Disease Unive rs active active ity of problems problems [facility] Allergies, Adverse Reactions, Alerts Allergy Allergy Status Severity Reaction(s) Onset Inactive Treating Comm ents Source Name Type Date Date Clinician NO KNOWN Drug Active Univers ALLERGIE Class ity of S [facility] Social History Social Habit Start Date Stop Date Quantity Comments Source ASSERTION 2018-10-09 University of 00:00:00 [facility] Exposure to Yes University of SARS-CoV-2 [place] [facility] (event) Branch History SDOH University o f Alcohol Std [place] [facility] Drinks Branch History SDFL University o f Alcohol Binge [place] [facility] al [place] Tobacco use and 2019-07-24 2019-07-24 Never used Universit y of exposure 00:00:00 00:00:00 [facility] Alcohol intake 2019-07-24 2019-07-24 Lifetime University of 00:00:00 00:00:00 non-drinker [place] [facility] (finding) Branch History SDOH 2019-01-02 2019-01-02 1 University o f Alcohol Frequency 00:00:00 00:00:00 [facility] Sex Ass[birth year] At [birth year] Universit y of 00:00:00 00:00:00 [place] [facility] Smoking Status Start Date Stop Date Source Never smoker [facility] Medications Ordered Filled Start Stop Current Ordering Indication Dosage Frequency Signature Comments Components Source Medication Medication Date Date Medication? Clinician (SIG) Name Name norethindro 2020-0 Yes [id number] 1{tbl} Take 1 Univers ne 0.35 mg 1-15 tablet by ity of tablet 00:00: mouth [place] 00 daily. Medical Branch norethindro 2020-0 Yes [id number] 1{tbl} Take 1 Univers ne 0.35 mg 1-15 tablet by ity of tablet 00:00: mouth [place] 00 daily. Medical Branch norethindro 2020-0 Yes [id number] 1{tbl} Take 1 Univers ne 0.35 mg 1-15 tablet by ity of tablet 00:00: mouth [place] 00 daily. Medical Branch norethindro 2020-0 Yes [id number] 1{tbl} Take 1 Univers ne 0.35 mg 1-15 tablet by ity of tablet 00:00: mouth [place] 00 daily. Medical Branch norethindro 2020-0 Yes [id number] 1{tbl} Take 1 Univers ne 0.35 mg 1-15 tablet by ity of tablet 00:00: mouth [place] 00 daily. Medical Branch norethindro 2020-0 Yes [id number] 1{tbl} Take 1 Univers ne 0.35 mg 1-15 tablet by ity of tablet 00:00: mouth [place] 00 daily. Medical Branch norethindro 2020-0 Yes [id number] 1{tbl} Take 1 Univers ne 0.35 mg 1-15 tablet by ity of tablet 00:00: mouth [place] 00 daily. Medical Branch norethindro 2020-0 Yes [id number] 1{tbl} Take 1 Univers ne 0.35 mg 1-15 tablet by ity of tablet 00:00: mouth [place] 00 daily. Medical Branch norethindro 2020-0 Yes [id number] 1{tbl} Take 1 Univers ne 0.35 mg 1-15 tablet by ity of tablet 00:00: mouth [place] 00 daily. Medical Branch norethindro 2019-0 Yes [id number] 1{tbl} Take 1 Univers ne 0.35 mg 1-15 tablet by ity of tablet 00:00: mouth [place] 00 daily. Medical Branch norethindro 0 Yes [id number] 1{tbl} Take 1 Univers ne 0.35 mg 1-15 tablet by ity of tablet 00:00: mouth [place] 00 daily. Medical Branch ibuprofen 2018-07 Yes [id number] 600mg Take 1 U nivers 600 mg 2-19 tablet by ity of tablet 00:00: mouth [place] 00 every 6 Medical (six) Branch hours as needed (Pain). Take with food or milk. 2018-07 Yes [id number] 1{tbl} Take 1 U nivers vitamin 2-19 tablet by ity of w/FA tablet 00:00: mouth [place] 00 daily. Medical Branch docusate 2018-07 Yes [id number] 240mg Take 1 Un chetna calcium 240 2-19 capsule by it y of mg capsule 00:00: mouth [place] daily as Medical needed for Branch Constipati on. ferrous 2018-07 Yes [id number] 325mg Take 1 Uni vers sulfate 325 2-19 tablet by ity of mg (65 mg 00:00: mouth 2 [place] iron) 00 (two) Medical tablet times Branch daily. ibuprofen 2018-07 Yes [id number] 600mg Take 1 U nivers 600 mg 2-19 tablet by ity of tablet 00:00: mouth [place] 00 every 6 Medical (six) Branch hours as needed (Pain). Take with food or milk. 2018-07 Yes [id number] 1{tbl} Take 1 U nivers vitamin 2-19 tablet by ity of w/FA tablet 00:00: mouth [place] 00 daily. Medical Branch docusate 2018-07 Yes [id number] 240mg Take 1 Un chetna calcium 240 2-19 capsule by it y of mg capsule 00:00: mouth [place] 00 daily as Medical needed for Branch Constipati on. ferrous 2018-07 Yes [id number] 325mg Take 1 Uni vers sulfate 325 2-19 tablet by ity of mg (65 mg 00:00: mouth 2 [place] iron) 00 (two) Medical tablet times Branch daily. ibuprofen 2018-07 Yes [id number] 600mg Take 1 U nivers 600 mg 2-19 tablet by ity of tablet 00:00: mouth [place] 00 every 6 Medical (six) Branch hours as needed (Pain). Take with food or milk. 2018-07 Yes [id number] 1{tbl} Take 1 U nivers vitamin 2-19 tablet by ity of w/FA tablet 00:00: mouth [place] 00 daily. Medical Branch docusate 2018-07 Yes [id number] 240mg Take 1 Un chetna calcium 240 2-19 capsule by it y of mg capsule 00:00: mouth [place] 00 daily as Medical needed for Branch Constipati on. ferrous 2018-07 Yes [id number] 325mg Take 1 Uni vers sulfate 325 2-19 tablet by ity of mg (65 mg 00:00: mouth 2 [place] iron) 00 (two) Medical tablet times Branch daily. ibuprofen 2018-07 Yes [id number] 600mg Take 1 U nivers 600 mg 2-19 tablet by ity of tablet 00:00: mouth [place] 00 every 6 Medical (six) Branch hours as needed (Pain). Take with food or milk. 2018-07 Yes [id number] 1{tbl} Take 1 U nivers vitamin 2-19 tablet by ity of w/FA tablet 00:00: mouth [place] 00 daily. Medical Branch docusate 2018-07 Yes [id number] 240mg Take 1 Un chetna calcium 240 2-19 capsule by it y of mg capsule 00:00: mouth [place] 00 daily as Medical needed for Branch Constipati on. ferrous 2018-07 Yes [id number] 325mg Take 1 Uni vers sulfate 325 2-19 tablet by ity of mg (65 mg 00:00: mouth 2 [place] iron) 00 (two) Medical tablet times Branch daily. ibuprofen 2018-07 Yes [id number] 600mg Take 1 U nivers 600 mg 2-19 tablet by ity of tablet 00:00: mouth [place] 00 every 6 Medical (six) Branch hours as needed (Pain). Take with food or milk. 2018-07 Yes [id number] 1{tbl} Take 1 U nivers vitamin 2-19 tablet by ity of w/FA tablet 00:00: mouth [place] 00 daily. Medical Branch docusate 2018-07 Yes [id number] 240mg Take 1 Un chetna calcium 240 2-19 capsule by it y of mg capsule 00:00: mouth [place] 00 daily as Medical needed for Branch Constipati on. ferrous 2018-07 Yes [id number] 325mg Take 1 Uni vers sulfate 325 2-19 tablet by ity of mg (65 mg 00:00: mouth 2 [place] iron) 00 (two) Medical tablet times Branch daily. ibuprofen 2018-07 Yes [id number] 600mg Take 1 U nivers 600 mg 2-19 tablet by ity of tablet 00:00: mouth [place] 00 every 6 Medical (six) Branch hours as needed (Pain). Take with food or milk. 2018-07 Yes [id number] 1{tbl} Take 1 U nivers vitamin 2-19 tablet by ity of w/FA tablet 00:00: mouth [place] 00 daily. Medical Branch docusate 2018-07 Yes [id number] 240mg Take 1 Un chetna calcium 240 2-19 capsule by it y of mg capsule 00:00: mouth once [place] 00 daily as Medical needed for Branch Constipati on. ferrous 2018-07 Yes [id number] 325mg Take 1 Uni vers sulfate 325 2-19 tablet by ity of mg (65 mg 00:00: mouth 2 [place] iron) 00 (two) Medical tablet times Branch daily. ibuprofen 2018-07 Yes [id number] 600mg Take 1 U nivers 600 mg 2-19 tablet by ity of tablet 00:00: mouth [place] 00 every 6 Medical (six) Branch hours as needed (Pain). Take with food or milk. 2018-07 Yes [id number] 1{tbl} Take 1 U nivers vitamin 2-19 tablet by ity of w/FA tablet 00:00: mouth [place] 00 daily. Medical Branch docusate 2018-07 Yes [id number] 240mg Take 1 Un chetna calcium 240 2-19 capsule by it y of mg capsule 00:00: mouth [place] 00 daily as Medical needed for Branch Constipati on. ferrous 2018-07 Yes [id number] 325mg Take 1 Uni vers sulfate 325 2-19 tablet by ity of mg (65 mg 00:00: mouth 2 [place] iron) 00 (two) Medical tablet times Branch daily. ibuprofen 2018-07 Yes [id number] 600mg Take 1 U nivers 600 mg 2-19 tablet by ity of tablet 00:00: mouth [place] 00 every 6 Medical (six) Branch hours as needed (Pain). Take with food or milk. 2018-07 Yes [id number] 1{tbl} Take 1 U nivers vitamin 2-19 tablet by ity of w/FA tablet 00:00: mouth [place] 00 daily. Medical Branch docusate 2018-07 Yes [id number] 240mg Take 1 Un chetna calcium 240 2-19 capsule by it y of mg capsule 00:00: mouth [place] 00 daily as Medical needed for Branch Constipati on. ferrous 2018-07 Yes [id number] 325mg Take 1 Uni vers sulfate 325 2-19 tablet by ity of mg (65 mg 00:00: mouth 2 [place] iron) 00 (two) Medical tablet times Branch daily. ibuprofen 2018-07 Yes [id number] 600mg Take 1 U nivers 600 mg 2-19 tablet by ity of tablet 00:00: mouth [place] 00 every 6 Medical (six) Branch hours as needed (Pain). Take with food or milk. 2018-07 Yes [id number] 1{tbl} Take 1 U nivers vitamin 2-19 tablet by ity of w/FA tablet 00:00: mouth [place] 00 daily. Medical Branch docusate 2018-07 Yes [id number] 240mg Take 1 Un chetna calcium 240 2-19 capsule by it y of mg capsule 00:00: mouth once [place] 00 daily as Medical needed for Branch Constipati on. ferrous 2018-07 Yes [id number] 325mg Take 1 Uni vers sulfate 325 2-19 tablet by ity of mg (65 mg 00:00: mouth 2 [place] iron) 00 (two) Medical tablet times Branch daily. ibuprofen 2018-07 Yes [id number] 600mg Take 1 U nivers 600 mg 2-19 tablet by ity of tablet 00:00: mouth [place] 00 every 6 Medical (six) Branch hours as needed (Pain). Take with food or milk. 2018-07 Yes [id number] 1{tbl} Take 1 U nivers vitamin 2-19 tablet by ity of w/FA tablet 00:00: mouth [place] 00 daily. Medical Branch docusate 2018-07 Yes [id number] 240mg Take 1 Un chetna calcium 240 2-19 capsule by it y of mg capsule 00:00: mouth once [place] 00 daily as Medical needed for Branch Constipati on. ferrous 2018-07 Yes [id number] 325mg Take 1 Uni vers sulfate 325 2-19 tablet by ity of mg (65 mg 00:00: mouth 2 [place] iron) 00 (two) Medical tablet times Branch daily. ibuprofen 2018-07 Yes [id number] 600mg Take 1 U nivers 600 mg 2-19 tablet by ity of tablet 00:00: mouth [place] 00 every 6 Medical (six) Branch hours as needed (Pain). Take with food or milk. 2018-07 Yes [id number] 1{tbl} Take 1 U nivers vitamin 2-19 tablet by ity of w/FA tablet 00:00: mouth [place] 00 daily. Medical Branch docusate 2018-07 Yes [id number] 240mg Take 1 Un chetna calcium 240 2-19 capsule by it y of mg capsule 00:00: mouth once [place] 00 daily as Medical needed for Branch Constipati on. ferrous 2018-07 Yes [id number] 325mg Take 1 Uni vers sulfate 325 2-19 tablet by ity of mg (65 mg 00:00: mouth 2 [place] iron) 00 (two) Medical tablet times Branch daily. SERTraline 2018-07 Yes [id number] 50mg Take 1 U nivers (ZOLOFT) 50 0-17 tablet by ity of mg tablet 00:00: mouth [place] 00 daily. Medical Branch SERTraline 2018-07 Yes [id number] 50mg Take 1 U nivers (ZOLOFT) 50 0-17 tablet by ity of mg tablet 00:00: mouth [place] 00 daily. Medical Branch SERTraline 2018-07 Yes [id number] 50mg Take 1 U nivers (ZOLOFT) 50 0-17 tablet by ity of mg tablet 00:00: mouth [place] 00 daily. Medical Branch SERTraline 2018-07 Yes [id number] 50mg Take 1 U nivers (ZOLOFT) 50 0-17 tablet by ity of mg tablet 00:00: mouth [place] 00 daily. Medical Branch SERTraline 2018-07 Yes [id number] 50mg Take 1 U nivers (ZOLOFT) 50 0-17 tablet by ity of mg tablet 00:00: mouth [place] 00 daily. Medical Branch SERTraline 2018-07 Yes [id number] 50mg Take 1 U nivers (ZOLOFT) 50 0-17 tablet by ity of mg tablet 00:00: mouth [place] 00 daily. Medical Branch SERTraline 2018-07 Yes [id number] 50mg Take 1 U nivers (ZOLOFT) 50 0-17 tablet by ity of mg tablet 00:00: mouth [place] 00 daily. Medical Branch SERTraline 2018-07 Yes [id number] 50mg Take 1 U nivers (ZOLOFT) 50 0-17 tablet by ity of mg tablet 00:00: mouth [place] 00 daily. Medical Branch SERTraline 2018-07 Yes [id number] 50mg Take 1 U nivers (ZOLOFT) 50 0-17 tablet by ity of mg tablet 00:00: mouth [place] 00 daily. Medical Branch SERTraline 2018-07 Yes [id number] 50mg Take 1 U nivers (ZOLOFT) 50 0-17 tablet by ity of mg tablet 00:00: mouth [place] 00 daily. Medical Branch SERTraline 2018-07 Yes [id number] 50mg Take 1 U nivers (ZOLOFT) 50 0-17 tablet by ity of mg tablet 00:00: mouth [place] 00 daily. Medical Branch metroNIDAZO Yes [id number] 500mg Take 1 Univers LE 500 mg 9-19 tablet by ity o f tablet 00:00: mouth [place] 00 every 12 Medical (twelve) Branch hours. 2019 Yes Take by [employer] [facility] vit 6-26 mouth. ity of calc,iron,f 14:45: [address] ( Branch VITAMIN ORAL) [id number] Yes Take by [employer] [facility] vit 6-26 mouth. ity of calc,iron,f 14:45: [address] ( Branch VITAMIN ORAL) Yes Take by [employer] [facility] vit 6-26 mouth. ity of calc,iron,f 14:45: [address] ( Branch VITAMIN ORAL) 2019-0 Yes Take by [employer] [facility] vit 6-26 mouth. ity of calc,iron,f 14:45: [address] ( Branch VITAMIN ORAL) 2019-0 Yes Take by [employer] [facility] vit 6-26 mouth. ity of calc,iron,f 14:45: [address] ( Branch VITAMIN ORAL) 2019-0 Yes Take by [employer] vit 6-26 mouth. ity of calc,iron,f 14:45: [address] ( Branch VITAMIN ORAL) 2019-0 Yes Take by [employer] vit 6-26 mouth. ity of calc,iron,f 14:45: [place] olic 06 Medical ( Branch VITAMIN ORAL) 2019-0 Yes Take by Univer s vit 6-26 mouth. ity of calc,iron,f 14:45: [place] [address] Medical ( Branch VITAMIN ORAL) 2019-0 Yes Take by Univer s vit 6-26 mouth. ity of calc,iron,f 14:45: [place] [address] Medical ( Branch VITAMIN ORAL) 2019-0 Yes Take by Univer s vit 6-26 mouth. ity of calc,iron,f 14:45: [place] [address] Medical ( Branch VITAMIN ORAL) Immunizations Ordered Filled Immunization Date Status Comments [facility] e Immunization Name Name TDAP (ADACEL) 2019-04-25 Completed University of VACCINE 00:00:00 [facility] Influenza Virus 2019-04-25 Completed Universit y of Vaccine Quad .5 mL 00:00:00 [facility] IM 6+ MO Branch TDAP (ADACEL) 2019-04-25 Completed University of VACCINE 00:00:00 [facility] Influenza Virus 2019-04-25 Completed Universit y of Vaccine Quad .5 mL 00:00:00 [place] [facility] IM 6+ MO Branch TDAP (ADACEL) 2019-04-25 Completed University of VACCINE 00:00:00 [facility] Influenza Virus 2019-04-25 Completed Universit y of Vaccine Quad .5 mL 00:00:00 [place] [facility] IM 6+ MO Branch TDAP (ADACEL) 2019-04-25 Completed University of VACCINE 00:00:00 [facility] Influenza Virus 2019-04-25 Completed Universit y of Vaccine Quad .5 mL 00:00:00 [place] [facility] IM 6+ MO Branch TDAP (ADACEL) 2019-04-25 Completed University of VACCINE 00:00:00 [facility] Influenza Virus 2019-04-25 Completed Universit y of Vaccine Quad .5 mL 00:00:00 [place] [facility] IM 6+ MO Branch TDAP (ADACEL) 2019-04-25 Completed University of VACCINE 00:00:00 [facility] Influenza Virus 2019-04-25 Completed Universit y of Vaccine Quad .5 mL 00:00:00 [place] [facility] IM 6+ MO Branch TDAP (ADACEL) 2019-04-25 Completed University of VACCINE 00:00:00 [facility] Influenza Virus 2019-04-25 Completed Universit y of Vaccine Quad .5 mL 00:00:00 [place] [facility] IM 6+ MO Branch TDAP (ADACEL) 2019-04-25 Completed University of VACCINE 00:00:00 [facility] Influenza Virus 2019-04-25 Completed Universit y of Vaccine Quad .5 mL 00:00:00 [place] [facility] IM 6+ MO Branch TDAP (ADACEL) 2019-04-25 Completed University of VACCINE 00:00:00 [facility] Influenza Virus 2019-04-25 Completed Universit y of Vaccine Quad .5 mL 00:00:00 [place] [facility] IM 6+ MO Branch TDAP (ADACEL) 2019-04-25 Completed University of VACCINE 00:00:00 [facility] Influenza Virus 2019-04-25 Completed Universit y of Vaccine Quad .5 mL 00:00:00 [place] [facility] IM 6+ MO Branch TDAP (ADACEL) 2019-04-25 Completed University of VACCINE 00:00:00 [facility] Influenza Virus 2019-04-25 Completed Universit y of Vaccine Quad .5 mL 00:00:00 [place] [facility] IM 6+ MO Branch Vital Signs Vital Name Observation Time Observation Value Comments Source Systolic blood 2019-07-24 17:10:00 126 mm[Hg] Univer sity of pressure [facility] Diastolic blood 2019-07-24 17:10:00 79 mm[Hg] Unive rsity of [facility] Heart rate 2019-07-24 17:10:00 64 /min Universi ty [facility] Body temperature 2019-07-24 17:10:00 36.61 [facility] Res[facility] 2019-07-24 17:10:00 18 /min [facility] Body height 2019-07-24 17:10:00 172.7 cm [facility] ty [facility] Body weight 2019-07-24 17:10:00 90.719 kg [facility] ty [facility] BMI 2019-07-24 17:10:00 30.41 kg/m2 Universi ty [facility] Systolic blood 2019-03-27 15:06:00 114 mm[Hg] Univer sity of pressure [facility] Diastolic blood 2019-03-27 15:06:00 77 mm[Hg] Unive rsity of pressure [facility] Heart rate 2019-03-27 15:06:00 78 /min Universi ty [facility] Body temperature 2019-03-27 15:06:00 36.67 Anisha Univ ersity [facility] Respiratory rate 2019-03-27 15:06:00 20 /min [facility] Body height 2019-03-27 15:06:00 170.2 cm Universi ty of [facility] Body weight 2019-03-27 15:06:00 94.348 kg Universi ty [facility] BMI 2019-03-27 15:06:00 32.58 kg/m2 Universi ty [facility] Systolic blood 2019-02-27 14:04:00 118 mm[Hg] Univer sity of pressure [facility] Branch Diastolic blood 2019-02-27 14:04:00 78 mm[Hg] Unive rsity of pressure [facility] Heart rate 2019-02-27 14:04:00 67 /min Universi ty [facility] Body temperature 2019-02-27 14:04:00 36.5 Anisha [facility] Respiratory rate 2019-02-27 14:04:00 18 /min [facility] Body height 2019-02-27 14:04:00 170.2 cm Universi ty of [place] [facility] [place] Body weight 2019-02-27 14:04:00 89.812 kg Universi ty [facility] BMI 2019-02-27 14:04:00 31.01 kg/m2 [facility] Procedures Procedure Date / Time Performing Clinician Source Performed CONSENT FOR ORAL 2019-07-24 06:01:00 Doctor Alvarado, [facility] CONTRACEPTIVES [place] [facility] [place] POCT TEST 2019-07-24 00:00:00 Justyna Bains [facility] POCT URINALYSIS W/O 2019-02-27 00:00:00 Justyna Bains [facility] SPECIFIC GRAVITY [facility] EXTERNAL PROVIDER RECORDS 2019-02-01 05:01:00 Doctor Alvarado, [facility] [place] [facility] [place] Encounters Start End Encounter Admission Attending Care Care Encounter Source Date/Time Date/Time Type Type Clinicians Facility Department ID 2022-03-16 Outpatient ANTONIA Vincent [facility] [id number] Common 08:16:[id number] [facility] 2022-02-15 Outpatient ANTONIA Vincent [facility] [id number] Common 10:26:[address] [facility] 2022-02-15 2022-02-15 [facility] [id number] Common 00:00:00 00:00:00 [facility] 2020-09-29 2020-09-29 Patient Fabian [facility] [id number] Univers 00:00:00 00:00:00 Outreach Quoc PRIMARY [id number] [facility] [id number] [place] [id number] [place] d[place] [address] [place] 2020-02-04 2020-02-04 Laboratory Lab, Adc Fam Pob I [facility] 1.2. [id number] Univers 08:57:30 09:17:30 Only Daily, [facility] [id number] ity of [place] [id number] [place] as Professio [phone] [address] Office [address] 2020-02-04 2020-02-04 Outpatient R [facility] [id number] Univers 09:00:00 09:00:00 [id number] ity of [facility] 2020-02-04 2020-02-04 Outpatient R [facility] [id number] Univers 09:00:00 09:00:00 ity [facility] 2020-01-22 2020-01-22 Outpatient R NARA, [facility] [id number] Univers 13:30:00 13:30:00 JUSTYNA ity [facility] 2020-01-22 2020-01-22 Telephone MASON Johnson [id number] Univers 00:00:00 00:00:00 Matthew HARIS [id number] it y of [facility] [id number] Liborio as [phone] [address] 2020-01-20 2020-01-20 Laboratory Lab, Adc Fam Pob I [facility] 1.2. [id number] Univers 09:58:50 10:18:50 Only [place], [facility] [id number] ity of [place] [id number] [place] as Professio [phone] [place] dical nal [address] [place] Office [facility] One 2020-01-20 2020-01-20 Outpatient R [facility] [id number] Univers 09:40:00 09:40:00 [id number] ity of [facility] 2020-01-20 2020-01-20 Outpatient R [facility] [id number] Univers 09:40:00 09:40:00 ity of [facility] 2019-10-15 2019-10-15 Patient Doctor MASON [id number] Univers 00:00:00 00:00:00 Secure Msg Unassigned, HARIS [id number] ity of [place] [facility] [id number] Liborio as [phone] [address] 2019-10-10 2019-10-10 [facility] [id number] Univers 10:30:00 10:30:00 JUSTYNA [id number] ity [facility] 2019-10-10 2019-10-10 [facility] [id number] Univers 10:30:00 10:30:00 [facility] 2019-09-30 [facility] [id number] Univers 00:00:00 00:00:00 Justyna Richardson [id number] [id number] [phone] [place] [address] [facility] 2019-08-02 2019-08-02 Telephone Madhavi Bernard [facility] [id number] Univers 00:00:00 00:00:00 Lamont Richardson [id number] [id number] [phone] [place] 134 [facility] 2019-07-24 2019-07-24 [facility] [id number] Univers 10:48:57 12:23:03 Justyna Richardson [id number] [id number] [phone] [address] 2019-07-24 2019-07-24 Orders Doctor MASON [id number] Univers 00:00:00 00:00:00 Only Unassigned, HARIS [id number] ity of [facility] [id number] [place] as [phone] [address] 2019-03-28 2019-03-28 Case Nara [facility] [id number] [facility] 00:00:00 00:00:00 Management Justyna Richardson [id number] [id number] [phone] [address] 2019-03-27 2019-03-27 Outpatient R MADHAVI [facility] [id number] Univers 09:45:00 10:30:06 ity of [facility] 2019-03-27 2019-03-27 Routine Madhavi Bernard [facility] [id number] Univers 09:42:25 10:30:06 Lamont Richardson [id number] [id number] [phone] [address] 2019-02-27 2019-02-27 Outpatient R NARA [facility] [id number] Univers 09:00:00 09:17:15 JUSTYNA ity [facility] 2019-02-27 2019-02-27 Routine Nara [facility] [id number] Univers 08:57:20 09:17:15 Justyna Richardson [id number] [id number] [phone] [address] 2019-02-12 2019-02-12 Hospital MILI Shea 1.2.840.114 [id number] Univers 15:41:53 23:59:00 Encounter Adelia Cunningham [id number] ity of [facility] [id number] [place] [phone] [facility] [address] 2019-02-07 2019-02-12 [employer] [facility] Advisor 2, Adc Lab [facility] [id number] Univers 10:40:29 13:24:31 Visit Madhavi Bernard [id number] [id number] [phone] [facility] 2019-02-12 2019-02-12 Case Madhavi Bernard [facility] [id number] Univers 00:00:00 00:00:00 Management [facility] 350.1.13.[address] [id number] [phone] [place] dic[place]al 134 [facility] 2019-02-07 2019-02-07 Outpatient P INOCENCIA SELBY [facility] [id number] Univers 09:00:00 10:23:36 INOCENCIA SELBY ity [facility] 2019-02-07 2019-02-07 Career Center Advisor Ultrasound, [facility] 1.2 .840.114 [id number] Univers 08:56:22 10:23:36 Visit Inocencia Selby [employer] [id number] ity of [facility] [id number] [place] as MATERNAL [phone] Med ical & CHILD [address] [place] [address] 2019-02-01 2019-02-01 Orders Doctor MASON [id number] [id number] Univers 00:00:00 00:00:00 Only Unassigned, HARIS 350.1.13.10 ity of [place] [facility] [id number] [place] as [phone] [facility] [address] Results Test Description Test Time Test Comments Results Result Comments Source POCT TEST 2019-07-24 18:22:00 Test Item Value Reference Range Interpretation Comme nts POCT PREG (test code = 1605) Negative On board controls acceptable with C Line (test code = 3574) Yes POCT PREG LOT # (test code = 3575) [id number] POCT PREG TEST DATE (test code = 3576) [facility] [id number] 14:14:00 Test Item Value Reference Range Interpretation [...] code = 3257) N/A Negative - Negative [facility]
--- NOTE | 2022-04-05 22:15 | RAD REPORT ---
EXAM DESCRIPTION: RAD -Hand Left 3 View - 04/05/2022 9:27 pm CLINICAL HISTORY: Left hand pain status post injury FINDINGS: No fracture or dislocation is seen.
--- NOTE | 2022-04-05 22:29 | ER ---
Nurse's Notes [facility] Name: Antonia Alston Age: 21 yrs Sex: Female : 2000 Arrival Date: 04/05/2022 Time: 20:47 Bed 23 Private MD: Diagnosis: Contusion of left index finger without damage to nail, initial encounter Presentation: 04/05 21:06 Chief complaint: Left hand got stuck between pt bed and trash can approx 2 hours ago, hb c/o left index finger pain 6/10. Coronavirus screen: At this time, the client does not indicate any symptoms associated with coronavirus-19. Ebola Screen: No symptoms or risks identified at this time. Risk Assessment: Do you want to hurt yourself or someone else? Patient reports no desire to harm self or others. Onset of symptoms was April 05, 2022. 21:06 Method Of Arrival: Ambulatory hb 21:06 Acuity: CRISTEL 4 hb 21:10 Initial Sepsis Screen: Does the patient meet any 2 criteria? No. Patient's initial 5 sepsis screen is negative. Does the patient have a suspected source of infection? No. Patient's initial sepsis screen is negative. Triage Assessment: 21:06 General: Appears in no apparent distress. uncomfortable, Behavior is calm, cooperative. hb Pain: Pain currently is 6 out of 10 on a pain scale. Neuro: Level of Consciousness is awake, alert, obeys commands, Oriented to person, place, time, situation. Cardiovascular: Patient's skin is warm and dry. Respiratory: Respiratory effort is even, unlabored, Respiratory pattern is regular, symmetrical. Musculoskeletal: Reports left index finger pain. Historical: - Allergies: 21:08 No Known Allergies; hb - PMHx: 21:08 Anxiety; BORDERLINE PERSONALITY DISORDER; depressive disorder; ocd; hb - PSHx: 21:08 skin graft right arm; hb - Immunization history:: Adult Immunizations up to date. - Social history:: Smoking status: Reported history of juuling and/or vaping. Screenin:08 Abuse screen: Denies threats or abuse. Denies injuries from another. Nutritional hb screening: No deficits noted. Tuberculosis screening: No symptoms or risk factors identified. Fall Risk None identified. Assessment: 21:08 General: SEE TRIAGE ASSESSMENT. hb 23:11 Reassessment: Patient appears in no apparent distress at this time. Patient and/or jh5 family updated on plan of care and expected duration. Pain level reassessed. Patient is alert, oriented x 3, equal unlabored respirations, skin warm/dry/pink. Vital Signs: 21:06 BP 139 / 89; Pulse 68; Resp 16; Temp 97.4; Pulse Ox 100% on R/A; Weight 77.11 kg; hb Height 5 ft. 7 in. (170.18 cm); Pain 6/10; 23:00 BP 126 / 76; Pulse 66; Resp 16; Pulse Ox 99% ; jh5 21:06 Body Mass Index 26.63 (77.11 kg, 170.18 cm) hb ED Course: 20:47 Patient arrived in ED. bp1 20:51 Vic Rodriguez NP is PHCP. pm1 20:51 Noel Esteban MD is Attending Physician. pm1 21:08 Triage completed. hb 21:08 Arm band placed on. hb 21:08 Patient has correct armband on for positive identification. hb 21:08 No provider procedures requiring assistance completed. Patient did not have IV access hb during this emergency room visit. 21:36 Hand Left 3 View XRAY In Process Unspecified. EDMS 22:27 Christiano Walker MD is Referral Physician. pm1 Administered Medications: 23:11 Drug: Ibuprofen 600 mg Route: PO; 5 23:11 Follow up: Response: Medication administered at discharge. 5 Medication: 21:08 VIS not applicable for this client. hb Outcome: 22:27 Discharge ordered by MD. pm1 23:12 Discharged to home ambulatory. jh5 23:12 Condition: stable 23:12 Discharge instructions given to patient, Instructed on discharge instructions, follow up and referral plans. medication usage, Demonstrated understanding of instructions, follow-up care, medications. 23:12 Patient left the ED. 5 Signatures: Dispatcher [employer] EDMS Vic Rodriguez NP OCCUPATIONAL THERAPY SUPERVISOR pm1 Maxine Kauffman, JENNIFER RN Lakisha [facility] Kavitha Pichardo RN RN 5
--- NOTE | 2022-04-05 22:29 | EDPHYS ---
Physician Documentation [facility] Name: Antonia Alston Age: 21 yrs Sex: Female : 2000 Arrival Date: 04/05/2022 Time: 20:47 Bed 23 Private MD: ED Physician Noel Esteban HPI: 04/05 21:57 This 21 yrs old Female presents to ER via Ambulatory with complaints of Finger Injury. pm1 21:57 The patient or guardian reports a contusion, pain. The complaints affect the Left index pm1 finger. Context: The problem was sustained at work, resulted from a crush injury, patient bed and trash can. Onset: The symptoms/episode began/occurred today. Modifying factors: The symptoms are alleviated by holding still, the symptoms are aggravated by movement. Associated signs and symptoms: Pertinent negatives: cyanosis distally, decreased sensation distally, numbness distally, tingling distally. Severity of symptoms: in the emergency department the symptoms are unchanged. The patient has not experienced similar symptoms in the past. The patient has not recently seen a physician. Historical: - Allergies: 21:08 No Known Allergies; hb - PMHx: 21:08 Anxiety; BORDERLINE PERSONALITY DISORDER; depressive disorder; ocd; hb - PSHx: 21:08 skin graft right arm; hb - Immunization history:: Adult Immunizations up to date. - Social history:: Smoking status: Reported history of juuling and/or vaping. ROS: 21:57 Constitutional: Negative for fever, chills, and weight loss, Cardiovascular: Negative pm1 for chest pain, palpitations, and edema, Respiratory: Negative for shortness of breath, cough, wheezing, and pleuritic chest pain. 21:57 Neuro: Negative for headache, weakness, numbness, tingling, and seizure. 21:57 MS/extremity: Positive for pain, swelling, tenderness, of the Left index finger, Negative for deformity. 21:57 Skin: Positive for abrasion(s), of the left PIP knuckle. 21:57 All other systems are negative. Exam: 21:57 Constitutional: This is a well developed, well nourished patient who is awake, alert, pm1 and in no acute distress. Head/Face: Normocephalic, atraumatic. 21:57 Cardiovascular: Exam negative for acute changes, Rate: normal, Rhythm: regular, Pulses: no pulse deficits are appreciated. 21:57 Respiratory: Exam negative for acute changes, respiratory distress, shortness of breath. 21:57 Musculoskeletal/extremity: Extremities: grossly normal except: noted in the tenderness at left PIP and DIP. Very small abrasion present to PIP. Passive full range of motion intact to left index finger: mild swelling present to PIP left index finger. 21:57 Skin: Appearance: normal except for affected area, injury, abrasion(s), very small abrasion noted, of the right finger PIP. 21:57 Neuro: Exam negative for acute changes, Orientation: is normal, Mentation: is normal, Motor: is normal, moves all fours. Vital Signs: 21:06 BP 139 / 89; Pulse 68; Resp 16; Temp 97.4; Pulse Ox 100% on R/A; Weight 77.11 kg; hb Height 5 ft. 7 in. (170.18 cm); Pain 6/10; 23:00 BP 126 / 76; Pulse 66; Resp 16; Pulse Ox 99% ; jh5 21:06 Body Mass Index 26.63 (77.11 kg, 170.18 cm) hb MDM: 21:10 Patient medically screened. pm1 21:57 Data reviewed: vital signs. Data interpreted: Pulse oximetry: on room air is 100 %. pm1 Interpretation: normal. 22:10 Counseling: I had a detailed discussion with the patient and/or guardian regarding: the pm1 historical points, exam findings, and any diagnostic results supporting the discharge/admit diagnosis, radiology results, the need for outpatient follow up, a hand specialist, to return to the emergency department if symptoms worsen or persist or if there are any questions or concerns that arise at home, Patient would like to wait for official radiology report for her work man's compensation report. 04/05 21:09 Order name: Hand Left 3 View XRAY; Complete Time: 22:26 hb 04/05 21:57 Order name: Finger Splint; Complete Time: 23:10 pm1 04/05 22:05 Order name: Ice pack; Complete Time: 22:54 pm1 Administered Medications: 23:11 Drug: Ibuprofen 600 mg Route: PO; 5 23:11 Follow up: Response: Medication administered at discharge. [facility] Disposition Summary: 04/05/22 22:27 Discharge Ordered Location: Home pm1 Problem: new pm1 Symptoms: have improved pm1 Condition: Stable pm1 Diagnosis - Contusion of left index finger without damage to nail, initial encounter pm1 Followup: pm1 - With: Emergency Department - When: As needed - Reason: Worsening of condition Followup: pm1 - With: Private Physician - When: 2 - 3 days - Reason: Recheck today's complaints, Continuance of care, Re-evaluation by your physician Followup: pm1 - With: Christiano Walker MD - When: 2 - 3 days - Reason: Recheck today's complaints, Continuance of care, Re-evaluation by your physician Discharge Instructions: - Discharge Summary Sheet pm1 - Cast or Splint Care, Adult pm1 - Hand Contusion pm1 Forms: - Medication Reconciliation Form pm1 - Thank You Letter pm1 - Work release form pm1 - Antibiotic Education pm1 - Prescription Opioid Use pm1 Signatures: Dispatcher [employer] EDMS Vic Rodriguez NP RECORDS AND INFORMATION MANAGER pm1 Maxine Kauffman RN RN Kavitha Pichardo RN RN jh5 Corrections: (The following items were deleted from the chart) 22:29 22:27 Contusion of right index finger without damage to nail pm1 pm1 22:30 21:57 The complaints affect the Right index finger, pm1 pm1 22:31 21:57 MS/extremity: Positive for pain, swelling, tenderness, of the Right index finger, pm1 Negative for deformity, pm1 22:31 21:57 Skin: Positive for abrasion(s), of the right PIP knuckle, pm1 pm1 22:32 21:57 Musculoskeletal/extremity: Extremities: grossly normal except: noted in the pm1 tenderness at right PIP and DIP. Very small abrasion present to PIP. Passive full range of motion intact to right index finger: mild swelling present to PIP right index finger, pm1
[2022-04-05] MEDS ORDERED: IBUPROFEN 200 MG TAB PO ONE (23:02)
== END 2022-04-05 23:12 | disposition home or self-care (01) ==
LOC: ER 20:45
DX: S60.022A Contusion of left index finger without damage to nail, initial encounter (principal)
CPT/HCPCS: 99283

== ENCOUNTER 2024-04-09 21:04 | Emergency (ER) | payer OTHER ==
--- OUTSIDE RECORDS SUMMARY | 2024-04-09 21:07 | XMS REPORT | Continuity of Care Document ---
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 Name Role Phone PCP, PATIENT DOES NOT HAVE A Primary Care Physic jono Unavailable Sue Vincent Attending Clinician Unavailable NENA JACOBSON Attending Clinician Unavailable [email or web address]_S Attending Clinician Unavaila Quoc Wylie DO Attending Clinician [phone] Doctor Unassigned, [place] Attending Clinician U navailable Lab, Adc Fam Pob I Attending Clinician Unavailab ravinder Ambrosio BIN FILLER, Annita Attending Clinician [phone] JUSTYNA BAINS Attending Clinician Unavailable Matthew Johnson RN Attending Clinician Unavailab ravinder Cole BIN FILLER, Leida Attending Clinician [phone] Justyna Bains PA-C Attending Clinician [phone] Madhavi Bernard MD Attending Clinician [phone] MADHAVI BERNARD Attending Clinician Unavailable Adelia Shea MD Attending Clinician [phone], Adc Lab Attending Clinician Unavailable INOCENCIA SELBY Attending Clinician Unavailable INOCENCIA SELBY Attending Clinician Unavailable Ultrasound, Ang-Mfm Attending Clinician Unavaila Inocencia Palencia MD Attending Clinician [phone] _GCBZW_Kadiyala_S Admitting Clinician Richard ble Payers Payer Name Policy Type Policy Number Effective Date Expirati on Date Source DANILO MORALES [id number] 2018 00:00:00 [facility] [id number] 2018 00:00:00 Problems Condition Name Condition Details Condition Category Status Onset Date Resolution Date Last Treatment Date Treating Clinician Comments Source Pre-eclamp irene, mild, delivered Pre-eclamp irene, mild, delivered Disease Active 2018-07 00:00: 00 [facility] Liveborn infant, of burr , born in hospital by vaginal delivery Liveborn , of burr , born in hospital by vaginal delivery Disease Active 2018-07 00:00: 00 [facility] Encounter for elective induction of labor Encounter for elective induction of labor Disease Active 2018-07 00:00: 00 [facility] High-risk in third trimester High-risk in third trimester Disease Active 2018-07 00:00: 00 [facility] 39 weeks gestation of 39 weeks gestation of Disease Active 2018-07 00:00: 00 [facility] Depression , unspecifie d depression type Depression , unspecifie d depression type Disease Active 2018-07 00:00: 00 [facility] Generalize d anxiety disorder Generalize d anxiety disorder Disease Active 2018-07 00:00: 00 [facility] Obesity (BMI 30-39.9) Obesity (BMI 30-39.9) Disease Active 03-27 00:00: 00 [facility] [id number] Bipolar 1 disorder Problem Active [facility] [id number] Primary hypertensi on Problem Active [facility] No known active problems No known active problems Disease [facility] Allergies, Adverse Reactions, Alerts Allergy Name Allergy Type Status Severity Reaction(s) Onset Date Inactive Date Treating Clinician Comments Source NO KNOWN ALLERGIE S Drug Class Active [facility] Social History Social Habit Start Date Stop Date Quantity Comments Source ASSERTION 2018-10-09 00:00:00 [facility] History of Tobacco Use Current Smoker [facility] Sex Assigned At [facility] SDOH Alcohol Std Drinks [facility] History SDOH Alcohol Binge [facility] Tobacco use and exposure 2023-10-16 00:00:00 2023-10-16 00:00:00 Smokeless tobacco non-user [facility] Alcohol intake 2023-10-16 00:00:00 2023-10-16 00:00:00 Lifetime non-drinker (finding) [facility] History of Social function 2020-02-13 00:00:00 2020-02-13 00:00:00 [facility] Exposure to SARS-CoV-2 (event) 2020-01-05 00:00:00 2020-02-04 07:48:[address] [facility] History SDOH Alcohol Frequency 2019-01-02 00:00:00 2019-01-02 00:00:[address] [facility] Smoking Status Start Date Stop Date Source Never smoked tobacco [facility] Current Smoker 2022-02-27 00:00:00 [facility] Medications Ordered Medication Name Filled Medication Name Start Date Stop Date Current Medication? Ordering Clinician Indication Dosage Frequency Signature (SIG) Comments Components Source metroNIDAZO LE (FLAGYL) 500 mg tablet 4-10 00:00: 00 Yes [id number] 500mg Take 1 tablet by mouth every 12 (twelve) hours. [facility] Lisinopril 10 MG Lisinopril 10 MG 8-09 00:00: 00 No 1{table t} QD Lisinopril 10 MG norethindro ne 0.35 mg tablet 1-15 00:00: 00 10-15 00:00 :00 No [id number] 1{tbl} Take 1 tablet by mouth daily. [facility] vitamin w/FA tablet 2018-07 00:00: 00 Yes [id number] 1{tbl} Take 1 tablet by mouth daily. [facility] vitamin w/FA tablet 2018-07 00:00: 00 Yes [id number] 1{tbl} Take 1 tablet by mouth daily. [facility] docusate calcium 240 mg capsule 2018-07 00:00: 00 10-15 00:00 :00 No [id number] 240mg Take 1 capsule by mouth once daily as needed for Constipati on. [facility] ferrous sulfate 325 mg (65 mg iron) tablet 2018-07 00:00: 00 10-15 00:00 :00 No [id number] 325mg Take 1 tablet by mouth 2 (two) times daily. [facility] ibuprofen 600 mg tablet 2018-07 00:00: 00 10-15 00:00 :00 No [id number] 600mg Take 1 tablet by mouth every 6 (six) hours as needed (Pain). Take with food or milk. [facility] SERTraline (ZOLOFT) 50 mg tablet 2018-07 00:00: 00 10-15 00:00 :00 No [id number] 50mg Take 1 tablet by mouth daily. [facility] metroNIDAZO LE 500 mg tablet 03-28 00:00: 00 Yes [id number] 500mg Take 1 tablet by mouth every 12 (twelve) hours. [facility] vit calc,iron,f olic ( VITAMIN ORAL) 01-02 14:45: 06 Yes Take by mouth. [facility] Sprintec 28 0.25-35 MG-MCG Sprintec 28 0.25-35 MG-MCG No 1{table t} QD Sprintec 28 0.25-35 MG-MCG Immunizations Ordered Immunization Name Filled Immunization Name Date Status Comments Source TDAP (ADACEL) VACCINE 2019-04-25 00:00:[address] [facility] Influenza Virus Vaccine Quad .5 mL IM 6+ MO 2019-04-25 00:00:[address] [facility] TDAP (ADACEL) VACCINE 2019-04-25 00:00:[address] [facility] Influenza Virus Vaccine Quad .5 mL IM 6+ MO 2019-04-25 00:00:[address] [facility] TDAP (ADACEL) VACCINE 2019-04-25 00:00:[address] [facility] Influenza Virus Vaccine Quad .5 mL IM 6+ MO 2019-04-25 00:00:[address] [facility] TDAP (ADACEL) VACCINE 2019-04-25 00:00:[address] [facility] Influenza Virus Vaccine Quad .5 mL IM 6+ MO 2019-04-25 00:00:00 Completed [facility] TDAP (ADACEL) VACCINE 2019-04-25 00:00:[address] [facility] Influenza Virus Vaccine Quad .5 mL IM 6+ MO 2019-04-25 00:00:[address] [facility] TDAP (ADACEL) VACCINE 2019-04-25 00:00:[address] [facility] Influenza Virus Vaccine Quad .5 mL IM 6+ MO 2019-04-25 00:00:[address] [facility] TDAP (ADACEL) VACCINE 2019-04-25 00:00:[address] [facility] Influenza Virus Vaccine Quad .5 mL IM 6+ MO 2019-04-25 00:00:[address] [facility] TDAP (ADACEL) VACCINE 2019-04-25 00:00:[address] [facility] Influenza Virus Vaccine Quad .5 mL IM 6+ MO 2019-04-25 00:00:[address] [facility] TDAP (ADACEL) VACCINE 2019-04-25 00:00:[address] [facility] Influenza Virus Vaccine Quad .5 mL IM 6+ MO 2019-04-25 00:00:[address] [facility] TDAP (ADACEL) VACCINE 2019-04-25 00:00:[address] [facility] Influenza Virus Vaccine Quad .5 mL IM 6+ MO 2019-04-25 00:00:[address] [facility] TDAP (ADACEL) VACCINE 2019-04-25 00:00:[address] [facility] Influenza Virus Vaccine Quad .5 mL IM 6+ MO 2019-04-25 00:00:[address] [facility] TDAP (ADACEL) VACCINE Unknown Completed [facility] Influenza Virus Vaccine Quad .5 mL IM 6+ MO (FLUZONE/FLULAVAL/F LUARIX) Unknown Completed [facility] TDAP (ADACEL) VACCINE Unknown Completed [facility] Influenza Virus Vaccine Quad .5 mL IM 6+ MO (FLUZONE/FLULAVAL/F LUARIX) Unknown Completed [facility] TDAP (ADACEL) VACCINE Unknown Completed [facility] Influenza Virus Vaccine Quad .5 mL IM 6+ MO (FLUZONE/FLULAVAL/F LUARIX) Unknown Completed [facility] TDAP (ADACEL) VACCINE Unknown Completed [facility] Influenza Virus Vaccine Quad .5 mL IM 6+ MO (FLUZONE/FLULAVAL/F LUARIX) Unknown Completed [facility] Vital Signs Vital Name Observation Time Observation Value Comments S yumiko Systolic blood pressure 2023-10-16 12:40:00 132 mm[facility]Hg[facility] Diastolic blood pressure 2023-10-16 12:40:00 87 mm[Hg[facility] Heart rate 2023-10-16 12:40:00 82 /min [facility] Body temperature 2023-10-16 12:40:[address] [facility] Respiratory rate 2023-10-16 12:40:00 16 /min [facility] Body height 2023-10-16 12:40:00 170.2 cm [facility] Body weight 2023-10-16 12:40:00 75.297 kg [facility] BMI 2023-10-16 12:40:00 26.00 kg/m2 [facility] Oxygen saturation in Arterial blood by Pulse oximetry 2023-10-16 12:40:00 100 /min [facility] height 2022-02-15 11:00:00 67 [in_i] Commo n [facility] weight 2022-02-15 11:00:00 175.2 [lb_av] Co mmon [facility] temperature 2022-02-15 11:00:00 97.2 [degF] Com mon [facility] bmi 2022-02-15 11:00:00 27.44 kg/m2 Comm on [facility] oximetry 2022-02-15 11:00:00 100 % Commo n [facility] blood pressure systolic 2022-02-15 11:00:00 134 mm[Hg] [facility] blood pressure diastolic 2022-02-15 11:00:00 78 mm[Hg] [facility] Systolic blood pressure 2019-07-24 17:10:00 126 mm[Hg[facility] Diastolic blood pressure 2019-07-24 17:10:00 79 mm[Hg[facility] Heart rate 2019-07-24 17:10:00 64 /min [facility] Body temperature 2019-07-24 17:10:[address] [facility] Respiratory rate 2019-07-24 17:10:00 18 /min [facility] Body height 2019-07-24 17:10:00 172.7 cm [facility] Body weight 2019-07-24 17:10:00 90.719 kg [facility] BMI 2019-07-24 17:10:00 30.41 kg/m2 [facility] Systolic blood pressure 2019-03-27 15:06:00 114 mm[Hg[facility] Diastolic blood pressure 2019-03-27 15:06:00 77 mm[Hg] [facility] Heart rate 2019-03-27 15:06:00 78 /min [facility] Body temperature 2019-03-27 15:06:[address] [facility] Respiratory rate 2019-03-27 15:06:00 20 /min [facility] Body height 2019-03-27 15:06:00 170.2 cm [facility] Body weight 2019-03-27 15:06:00 94.348 kg [facility] BMI 2019-03-27 15:06:00 32.58 kg/m2 [facility] Systolic blood pressure 2019-02-27 14:04:00 118 mm[Hg[facility] Diastolic blood pressure 2019-02-27 14:04:00 78 mm[Hg[facility] Heart rate 2019-02-27 14:04:00 67 /min [facility] Body temperature 2019-02-27 14:04:[address] [facility] Respiratory rate 2019-02-27 14:04:00 18 /min [facility] Body height 2019-02-27 14:04:00 170.2 cm [facility] Body weight 2019-02-27 14:04:00 89.812 kg [facility] BMI 2019-02-27 14:04:00 31.01 kg/m2 [facility] Procedures Procedure Date / Time Performed Performing Clinician Source CONSENT FOR ORAL CONTRACEPTIVES 2019-07-24 06:01:00 Doctor Unassigned, [place] [facility] POCT TEST 2019-07-24 00:00:[address] [facility] POCT URINALYSIS W/O SPECIFIC GRAVITY 2019-02-27 00:00:[address] [facility] EXTERNAL PROVIDER RECORDS 2019-02-01 05:01:00 Do ctor Unassigned, [place] [facility] Encounters Start Date/Time End Date/Time Encounter Type Admission Type Attending Clinicians Care Facility Care Department Encounter ID Source 2022-03-16 08:16:03 Outpatient ThorpSue black [facility] [id number] [facility] 2022-02-15 10:26:02 Outpatient MelisaSue [facility] [id number] [facility] 2023-10-18 00:00:00 2023-10-18 00:00:00 Refill Nena [facility] 1..840.114 350.1.13.10 4.2.7.2.686 [id number] [facility] 2023-10-16 07:30:00 2023-10-16 08:02:38 Outpatient R NENA JACOBSON [facility] [id number] [facility] 2023-10-16 07:30:00 2023-10-16 08:02:38 Office Visit Nena Jacobson [facility] 1..840.114 350.1.13.10 4.2.7.2.686 [id number] [facility] 2023-05-09 00:00:00 2023-05-09 00:00:00 Outpatient GC_GCBZW_Ka liane_Gage [facility] [id number] [facility] 2022-02-15 00:00:00 2022-02-15 00:00:00 OFFICE VISIT NEW PT LEVEL 3 STLMLC ST[facility] [id number] [facility] 2020-09-29 00:00:00 2020-09-29 00:00:00 Patient Outreach Quoc Peralta [facility] ..114 350.1.13.10 4.2.7.2.686 [id number] [facility] 2020-02-05 00:00:00 2020-02-05 00:00:00 Patient Secure Msg Doctor Unassigned, [place] [facility] 1..114 350.1.13.10 4.2.7.2.686 [id number] [facility] 2020-02-04 08:57:30 2020-02-04 09:17:30 Laboratory Only Lab, Adc Fam Pob Annita Paredes [facility] Professio nal Office [address] ..114 350.1.13.10 4.2.7.2.686 [id number] [facility] 2020-02-04 09:00:00 2020-02-04 09:00:00 Outpatient R [facility] [id number] [facility] 2020-01-22 13:30:00 2020-01-22 13:30:00 Outpatient R JUSTYNA BAINS [facility] [id number] [facility] 2020-01-22 00:00:00 2020-01-22 00:00:00 Telephone Matthew Johnson [facility] ..114 350.1.13.10 4.2.7.2.686 [id number] [facility] 2020-01-20 09:58:50 2020-01-20 10:18:50 Laboratory Only Lab, Adc Fam Pob Leida Mora [facility] Office [address] 1.114 350.1.13.10 4.2.7.2.686 [id number] [facility] 2020-01-20 09:40:00 2020-01-20 09:40:00 Outpatient R [facility] [id number] [facility] 2019-10-15 00:00:00 2019-10-15 00:00:00 Patient Secure Msg Doctor Unassigned, [place] [facility] 1.114 350.1.13.10 4.2.7.2.686 [id number] [facility] 2019-10-10 10:30:00 2019-10-10 10:30:00 [id number] 2019-09-30 00:00:00 2019-09-30 00:00:00 Telephone SudhaJustyna [facility] Building 1..114 350.1.13.10 4.2.7.2.686 [id number] [facility] 2019-08-02 00:00:00 2019-08-02 00:00:00 Telephone Madhavi Bernard [facility] Building 1..114 350.1.13.10 4.2.7.2.686 [id number] [facility] 2019-07-24 10:48:57 2019-07-24 12:23:03 Routine Visit Justyna Bains [facility] Building 1..114 350.1.13.10 4.2.7.2.686 [id number] [facility] 2019-07-24 00:00:00 2019-07-24 00:00:00 Orders Only Doctor Unassigned, [place] [facility] 1.284.114 350.1.13.10 4.2.7.2.686 [id number] [facility] 2019-03-28 00:00:00 2019-03-28 00:00:00 Case Management Justyna Bains [facility] 1.2.84.114 350.1.13.10 4.2.7.2.686 [id number] [facility] 2019-03-27 09:45:00 2019-03-27 10:30:06 Outpatient R MADHAVI BERNARD [facility] [id number] [facility] 2019-03-27 09:42:25 2019-03-27 10:30:06 Routine Visit Madhavi Bernard [facility] 1.2.840.114 350.1.13.10 4.2.7.2.686 [id number] [facility] 2019-02-27 09:00:00 2019-02-27 09:17:15 Outpatient R JUSTYNA BAINS [facility] [id number] [facility] 2019-02-27 08:57:20 2019-02-27 09:17:15 Routine Visit Justyna Bains [facility] 1.2840.114 350.1.13.10 4.2.7.2.686 [id number] [facility] 2019-02-12 15:41:53 2019-02-12 23:59:00 Hospital Encounter Adelia Shea BUILDING 1.2.84.114 350.1.13.10 4.2.7.2.686 [id number] [facility] 2019-02-07 10:40:29 2019-02-12 13:24:31 Street Commissioner Visit 2, Adc Lab Madhavi Bernard [facility] 1.2840.114 350.1.13.10 4.2.7.2.686 [id number] [facility] 2019-02-12 00:00:00 2019-02-12 00:00:00 Case Management Madhavi Bernard [facility] 1.2840.114 350.1.13.10 4.2.7.2.686 [id number] [facility] 2019-02-07 09:00:00 2019-02-07 10:23:36 Outpatient P [facility] [id number] [facility] 2019-02-07 08:56:22 2019-02-07 10:23:36 Street Commissioner Visit Ultrasound, Inocencia Serrano [facility] 1.284.114 350.1.13.10 4.2.7.2.686 [id number] [facility] 2019-02-01 00:00:00 2019-02-01 00:00:00 Orders Only Doctor Unassigned, [place] [facility] 1.2840.114 350.1.13.10 4.2.7.2.686 [id number] [facility] Results Test Description Test Time Test Comments Results Result Co mments Source [facility]/O SPECIFIC [id number] 14:14:00* Test Item Value Reference Range Interpretation Comme nts POCT PH U (test code = 3254) N/A 5-8 POCT U LEUK EST (test code = 3263) N/A Negative - Negative POCT U NIT (test code = 3262) N/A Negative - Negati ve POCT U PROT (test code = 3259) Negative Negative - Negat [place] POCT U GLU (test code = 3256) Negative Negative - Negati ve POCT U KETONE (test code = 3258) N/A Negative - Neg ative POCT U BLD (test code = 3257) N/A Negative - Negati ve [facility] Notes Date/Time Note Provider Source 2023-10-18 22:15:25 Rx sent for BV. [facility]
[2024-04-09 22:01] LABS: Specific Gravity 1.015 (1.005-1.030)
[2024-04-09 22:10] LABS: Specific Gravity 1.015 (1.005-1.030); Sqamous Epithelial <5 /HPF (None Seen); Urine Bacteria <20 /HPF (<20); Urine Bilirubin NEGATIVE (Negative); Urine Blood 3+ (OVER) (Negative); Urine Clarity Extremely Turbid (Clear); Urine Color Light-Orange (Yellow); Urine Crystals Unidentified Many /HPF (None Seen); Urine Culture Reflex Order REFLEXED; Urine Glucose NEGATIVE (Negative); Urine Ketones NEGATIVE (Negative); Urine Micro Reflex YN NO BILL MICROSCOPIC; Urine Mucus Slight /HPF (None Seen); Urine Nitrite NEGATIVE (Negative); Urine Protein 1+ (Negative); Urine RBC >50 /HPF (None Seen); Urine Urobilinogen Normal (Normal); Urine WBC 20-50 /HPF (<5); Urine pH 6.5 (5.0-7.0)
--- NOTE | 2024-04-09 22:57 | ER ---
Nurse's Notes [facility] Name: Antonia Alston Age: 23 yrs Sex: Female : 2000 Arrival Date: 04/09/2024 Time: 21:04 Bed DX3 Private MD: Diagnosis: UTI/ Urinary tract infection, site not specified Presentation: 04/09 21:16 Chief complaint: Patient states: today started to have burning with urination, tm6 frequency but little output, and blood in urine. Had a UTI 3 weeks ago, took antibiotics, but did not finish them. Today my symptoms started again. Coronavirus screen: Vaccine status: Patient reports receiving the 2nd dose of the covid vaccine. Ebola Screen: Patient negative for fever greater than or equal to 101.5 degrees Fahrenheit, and additional compatible Ebola Virus Disease symptoms Patient denies exposure to infectious person. Patient denies travel to an Ebola-affected area in the 21 days before illness onset. No symptoms or risks identified at this time. Initial Sepsis Screen: Does the patient meet any 2 criteria? No. Patient's initial sepsis screen is negative. Does the patient have a suspected source of infection? No. Patient's initial sepsis screen is negative. Risk Assessment: Do you want to hurt yourself or someone else? Patient reports no desire to harm self or others. Onset of symptoms was April 09, 2024. 21:16 Method Of Arrival: Ambulatory tm6 21:16 Acuity: CRISTEL 3 tm6 Triage Assessment: 21:17 General: Appears in no apparent distress. Behavior is calm, cooperative. Pain: tm6 Complains of pain in pelvis Pain currently is 5 out of 10 on a pain scale. Quality of pain is described as burning. EENT: No signs and/or symptoms were reported regarding the EENT system. Neuro: Level of Consciousness is awake, alert, obeys commands, Oriented to person, place, time, situation. Cardiovascular: Patient's skin is warm and dry. Respiratory: Airway is patent Respiratory effort is even, unlabored, Respiratory pattern is regular, symmetrical. GI: No signs and/or symptoms were reported involving the gastrointestinal system. Abdomen is flat, non-distended. : Reports burning with urination, urinary frequency, blood in urine. Derm: No signs and/or symptoms reported regarding the dermatologic system. Musculoskeletal: No signs and/or symptoms reported regarding the musculoskeletal system. 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 - Infectious Disease History:: Denies. - Social history:: Smoking status: Reported history of juuling and/or vaping. Patient uses alcohol, occasionally. Screenin:24 [facility] ED Fall Risk Assessment (Adult) History of falling in the last 3 months, lg3 including since admission No falls in past 3 months (0 pts) Confusion or Disorientation No (0 pts) Intoxicated or Sedated No (0 pts) Impaired Gait No (0 pts) Mobility Assist Device Used No (0 pt) Altered Elimination No (0 pt) Score/Fall Risk Level 0 - 2 = Low Risk Oriented to surroundings, Maintained a safe environment, Educated pt \T\ family on fall prevention, incl call for assistance when getting out of bed, Assessed \T\ reinforced patient's understanding of fall precautions. Abuse screen: Denies threats or abuse. Denies injuries from another. Nutritional screening: No deficits noted. Tuberculosis screening: No symptoms or risk factors identified. Assessment: 23:24 General: Appears in no apparent distress. comfortable, Behavior is calm, cooperative. lg3 Pain: Complains of pain in pelvis Pain does not radiate. Neuro: No deficits noted. Crenshaw Agitation-Sedation Scale (RASS): 0 - Alert and Calm Level of Consciousness is awake, alert, obeys commands, Oriented to person, place, time, situation. Cardiovascular: No deficits noted. Denies chest pain, shortness of breath, Capillary refill < 3 seconds Clubbing of nail beds is absent JVD is absent Patient's skin is warm and dry. Respiratory: No deficits noted. Airway is patent Respiratory effort is even, unlabored, Respiratory pattern is regular, symmetrical. GI: No deficits noted. Abdomen is flat, non-distended. : Reports burning with urination, cramping, inability to void, urgency, urinary frequency. EENT: No deficits noted. No signs and/or symptoms were reported regarding the EENT system. Derm: No deficits noted. No signs and/or symptoms reported regarding the dermatologic system. Skin is intact, is healthy with good turgor, Skin is dry, Skin is normal, Skin temperature is warm. Musculoskeletal: No deficits noted. No signs and/or symptoms reported regarding the musculoskeletal system. Circulation, motion, and sensation intact. Range of motion: intact in all extremities. Vital Signs: 21:15 BP 130 / 84; Pulse 63; Resp 19; Temp 99(O); Pulse Ox 100% on R/A; MAP 97 mmHg; Weight tm6 65.77 kg; Height 5 ft. 8 in. ; Pain 5/10; 23:24 BP 124 / 86; Pulse 71; Resp 17 S; Temp 98.5(O); Pulse Ox 100% on R/A; lg3 21:15 Body Mass Index 22.05 (65.77 kg, 172.72 cm) tm6 21:15 Pain Scale: Adult tm6 ED Course: 21:08 Patient arrived in ED. ra3 21:17 Triage completed. tm6 21:17 Arm band placed on right wrist. tm6 21:21 Matthew Adkins PA is PHCP. cp 21:22 Noel Esteban MD is Attending Physician. cp 21:50 Urinalysis W/Microscopic Sent. tm6 21:50 Test, Urine Sent. tm6 23:24 Leida Orellana, RN is Primary Nurse. lg3 23:24 Patient has correct armband on for positive identification. Warm blanket given. Pillow lg3 given. 23:24 No provider procedures requiring assistance completed. Patient did not have IV access lg3 during this emergency room visit. Administered Medications: 23:23 Drug: Rocephin (cefTRIAXone) IM 1 grams IM once Route: IM; Site: right deltoid; lg3 23:50 Follow up: Response: No adverse reaction; No change in condition lg3 Medication: 23:24 VIS not applicable for this client. lg3 Outcome: 22:56 Discharge ordered by . cp 23:24 Discharged to home ambulatory, lg3 23:24 Condition: stable 23:24 Discharge instructions given to patient, Instructed on discharge instructions, follow up and referral plans. Demonstrated understanding of instructions, follow-up care, Prescriptions given X 2, 23:50 Patient left the ED. lg3 Signatures: Matthew Adkins PA PA cp Able, Lacie, RN RN lg3 Alaina Mata, JENNIFER RN tm6 Pennie Adame 3
--- NOTE | 2024-04-09 22:57 | EDPHYS ---
Physician Documentation [facility] Name: Antonia Alston Age: 23 yrs Sex: Female : 2000 Arrival Date: 04/09/2024 Time: 21:04 Bed DX3 Private MD: ED Physician Noel Esteban HPI: 04/09 21:35 This 23 yrs old Female presents to ER via Ambulatory with complaints of blood in urine. cp 21:35 The patient presents with urinary symptoms, dysuria, frequency. Onset: The cp symptoms/episode began/occurred today. Associated signs and symptoms: Pertinent positives: suprapubic pain, Pertinent negatives: diarrhea, fever, vaginal bleeding, vaginal discharge, vomiting. Severity of symptoms: in the emergency department the symptoms are unchanged, despite home interventions. 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 - Infectious Disease History:: Denies. - Social history:: Smoking status: Reported history of juuling and/or vaping. Patient uses alcohol, occasionally. ROS: 21:40 Constitutional: Negative for body aches, chills, fever, poor PO intake, cp 21:40 Eyes: Negative for injury, pain, redness, and discharge, cp 21:40 Cardiovascular: Negative for chest pain, 21:40 Respiratory: Negative for cough, shortness of breath, wheezing, 21:40 Abdomen/GI: Positive for of the suprapubic area, pain, Negative for nausea and vomiting, diarrhea, constipation, 21:40 Back: Negative for pain at rest, pain with movement, 21:40 : Positive for urinary symptoms, burning with urination, 21:40 Neuro: Negative for altered mental status, headache, weakness, 21:40 All other systems are negative, Exam: 21:45 Constitutional: The patient appears in no acute distress, alert, awake, comfortable, cp non-toxic, well developed, well nourished, 21:45 Head/Face: Normocephalic, atraumatic. cp 21:45 Eyes: Periorbital structures: appear normal, Conjunctiva: normal, no exudate, no injection, Sclera: no appreciated abnormality, Lids and lashes: appear normal, bilaterally, 21:45 ENT: External ear(s): are unremarkable, Nose: is normal, Mouth: Lips: moist, Oral mucosa: moist, Posterior pharynx: Airway: no evidence of obstruction, patent, 21:45 Chest/axilla: Inspection: normal, 21:45 Cardiovascular: Rate: normal, 21:45 Respiratory: the patient does not display signs of respiratory distress, Respirations: normal, Breath sounds: are clear throughout, no decreased breath sounds, 21:45 Abdomen/GI: Exam negative for discomfort, distension, guarding, Inspection: abdomen appears normal, 21:45 Back: CVA tenderness, is absent, 21:45 Neuro: Orientation: to person, place \T\ time. Mentation: is normal, Motor: moves all fours, no focal deficits, Gait: is steady, Vital Signs: 21:15 BP 130 / 84; Pulse 63; Resp 19; Temp 99(O); Pulse Ox 100% on R/A; MAP 97 mmHg; Weight tm6 65.77 kg; Height 5 ft. 8 in. ; Pain 5/10; 23:24 BP 124 / 86; Pulse 71; Resp 17 S; Temp 98.5(O); Pulse Ox 100% on R/A; lg3 21:15 Body Mass Index 22.05 (65.77 kg, 172.72 cm) tm6 21:15 Pain Scale: Adult tm6 MDM: 21:22 Patient medically screened. cp 22:55 Data reviewed: vital signs, nurses notes, lab test result(s), and as a result, I will cp discharge patient. 22:55 Differential diagnosis: ectopic , ovarian cyst, pelvic inflammatory disease, cp urinary tract infection, vaginosis. Counseling: I had a detailed discussion with the patient and/or guardian regarding the historical points, exam findings, and any diagnostic results supporting the discharge/admit diagnosis, lab results, to return to the emergency department if symptoms worsen or persist or if there are any questions or concerns that arise at home. 04/09 21:29 Order name: Urinalysis W/Microscopic; Complete Time: 22:45 cp 04/09 21:29 Order name: Test, Urine; Complete Time: 22:10 cp 04/09 22:10 Interpretation: Reviewed. cp 04/09 22:13 Order name: Urine Culture EDMS Administered Medications: 23:23 Drug: Rocephin (cefTRIAXone) IM 1 grams IM once Route: IM; Site: right deltoid; lg3 23:50 Follow up: Response: No adverse reaction; No change in condition lg3 Disposition Summary: 04/09/24 22:56 Discharge Ordered Notes: Location: Home cp Problem: new cp Symptoms: have improved cp Condition: Stable cp Diagnosis - UTI/ Urinary tract infection, site not specified cp Followup: cp - With: Private Physician - When: 2 - 3 days - Reason: Worsening of condition Discharge Instructions: - Discharge Summary Sheet cp - Urinary Tract Infection, Adult cp Forms: - Medication Reconciliation Form cp - Antibiotic Education cp - Prescription Opioid Use cp - Patient Portal Instructions cp - Leadership Thank You Letter cp Prescriptions: - Pyridium 200 mg Oral tablet - take 1 tablet ORAL route every 8 hours for 2 days; 6 tablet; Refills: 0, cp Product Selection Permitted - cefpodoxime 200 mg Oral tablet - take 1 tablet ORAL route every 12 hours for 7 days with food; 14 tablet; cp Refills: 0, Product Selection Permitted Signatures: Dispatcher [employer] EDMS Matthew Adkins PA PA cp Able, Lacie, RN RN lg3 Alaina Mata RN RN tm6
[2024-04-09] MEDS ORDERED: CEFTRIAXONE 1000 MG/VIAL ONE (23:19)
[2024-04-09] MEDS ORDERED: LIDOCAINE 1% MPF 2 ML AMPULE ONE (23:19)
[2024-04-10 07:50] VITALS: O2SAT 100
[2024-04-10 07:53] VITALS: BP 124/86; TEMP 98.5
== END 2024-04-09 23:50 | disposition home or self-care (01) ==
LOC: ER 21:04
DX: N39.0 Urinary tract infection, site not specified (principal)
CPT/HCPCS: 87088; 81001; 87086; 81025; 96372; 99284; J0696